=== PATIENT | male | born 1965 | race Caucasian/White ===

== ENCOUNTER → 2023-09-10 12:28 | Outpatient (REF) | payer BC, SELFPAY | LOC: DHCBS MAIN 12:28 | PROVIDERS: ATTENDING PHYSICIAN Internal Medicine Cardiovascular Disease; FAMILY PHYSICIAN Family Medicine | DX: I35.1 Nonrheumatic aortic (valve) insufficiency (principal) | CPT/HCPCS: 93306 ==

== ENCOUNTER → 2024-09-14 09:18 | Outpatient (REF) | payer BC, SELFPAY | LOC: HWRAD 09:18 | PROVIDERS: ATTENDING PHYSICIAN Physician Assistant; FAMILY PHYSICIAN Family Medicine | DX: I71.20 Thoracic aortic aneurysm, without rupture, unspecified (principal) | CPT/HCPCS: 71250 ==

== ENCOUNTER → 2024-09-21 10:04 | Outpatient (REF) | payer BC, SELFPAY | LOC: HWRCS 10:04 | PROVIDERS: ATTENDING PHYSICIAN Internal Medicine Cardiovascular Disease | DX: I35.1 Nonrheumatic aortic (valve) insufficiency (principal) | CPT/HCPCS: 93306 ==

== ENCOUNTER 2024-10-05 06:18 | Day surgery (SDC) | payer BC, SELFPAY ==
[2024-10-05] VITALS (9 sets, daily range): BP systolic 139–175; BP diastolic 70–85; BMI 25.4
[2024-10-05] MEDS: LOW STRENGTH ASPIRIN 324 MG PO (07:14)
[2024-10-05] MEDS: NSS 234 ML IV (07:19)
--- NOTE | 2024-10-05 08:48 | ITS.CL.CATH ---
Chief Informatics Officer - Catheterization
Cardiac Catheterization
Procedure Report:
LEFT HEART CATHETERIZATION
Date of Procedure: October 05, 2024
Referring: Dr. Jesse Whitlock, Dr. Nazario Arce
PROCEDURES:
Coronary angiography
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 He has a history of
rectal carcinoma diagnosed in 2011 treated with resection, ileostomy, and chemotherapy. He is followed by Dr. Ford. He has a known bicuspid aortic valve and aortic root dilation. The most recent CT angiogram of the thoracic aorta was notable for
progressive dilation of the fusiform aneurysm now measuring 5.8 cm. He was seen by Dr. Arce and scheduled for surgical repair of his aortic aneurysm and aortic valve replacement/resuspension. He is now referred for coronary angiography in
anticipation of surgical intervention.
ACCESS: Right radial artery, 6 Martiniquais sheath
HEMODYNAMICS : (mmHg)
AO (s/d) : 134/69, 90
CORONARY FINDINGS
DOMINANCE: Right
LEFT MAIN: Normal
LEFT ANTERIOR DESCENDING: The LAD arises normally from the left main and runs in the anterior interventricular groove. There is a sizable diagonal branch had a prizes from the proximal one third of the LAD. The LAD and diagonal branch appear
widely patent
CIRCUMFLEX: The circumflex/ramus is large and bifurcates distally and appears widely patent. The circumflex proper supplies a very small terminal obtuse marginal branch
RIGHT CORONARY ARTERY: The right coronary artery is a dominant vessel. The right coronary was nonselectively cannulated for angiography with an AL 2 diagnostic catheter. The right coronary artery appears large and dominant. No focal high-grade
stenosis is appreciated. There is mild RCA calcification noted
VENTRICULOGRAPHY: Not done
RADIATION SUMMARY: Fluoro Time (min): 6.9, Dose (mGy): 243, DAP (Gy.cm2) : 19.2
Closure Device: TR band
CONCLUSIONS
1. Nonobstructive coronary disease
RECOMMENDATIONS
1. Angiograms will be reviewed by Dr. Arce
Copy to: Dr. Jesse Whitlock, Dr. Nazario Arce
[2024-10-05] MEDS: NSS 1000 IV (08:58)
== END 2024-10-05 11:29 | disposition home or self-care (01) ==
LOC: CATH 06:18
PROVIDERS: ATTENDING PHYSICIAN Internal Medicine Interventional Cardiology; FAMILY PHYSICIAN Nurse Practitioner Family; OTHER PHYSICIAN Internal Medicine Cardiovascular Disease
DX: Q25.43 Congenital aneurysm of aorta (principal); I35.1 Nonrheumatic aortic (valve) insufficiency; I25.10 Atherosclerotic heart disease of native coronary artery without angina pectoris; Q23.81 Bicuspid aortic valve; Z95.2 Presence of prosthetic heart valve; Z94.0 Kidney transplant status; Z85.048 Personal history of other malignant neoplasm of rectum, rectosigmoid junction, and anus; Z87.891 Personal history of nicotine dependence
CPT/HCPCS: 93005; 93458; C1894; Q9967

== ENCOUNTER 2024-10-09 08:02 | Outpatient (RCR) | payer BC, SELFPAY ==
[2024-10-09] MEDS: NSS 500 IV (08:27)
[2024-10-09 08:35] VITALS: BP 133/71
[2024-10-09 10:36] VITALS: BP 144/68
== END 2024-11-02 23:59 | disposition home or self-care (01) ==
LOC: OID 08:02
PROVIDERS: ATTENDING PHYSICIAN Thoracic Surgery (Cardiothoracic Vascular Surgery); FAMILY PHYSICIAN Nurse Practitioner Family
DX: Q25.43 Congenital aneurysm of aorta (principal); Q23.81 Bicuspid aortic valve; I35.1 Nonrheumatic aortic (valve) insufficiency
CPT/HCPCS: 96360; 96361

== ENCOUNTER → 2024-10-09 09:06 | Outpatient (REF) | payer BC, SELFPAY | LOC: RAD 09:06 | PROVIDERS: ATTENDING PHYSICIAN Thoracic Surgery (Cardiothoracic Vascular Surgery) | DX: Q25.43 Congenital aneurysm of aorta (principal) | CPT/HCPCS: 71275; Q9967 ==

== ENCOUNTER 2024-10-13 05:12 | Inpatient (IN) | payer BC, SELFPAY ==
[2024-10-02 08:22] VITALS: BMI 27.1
[2024-10-02 09:14] LABS: INR 0.94; PT 12.9 Sec (11.4-14.6)
[2024-10-02 09:16] LABS: % Basophils 0.8 % (0-2); % Eosinophils 1.5 % (0-6); % Immature Granulocytes 0.4 % (0-0.5); % Lymphocytes 16.3 % (20.5-51.1); % Monocytes 6.9 % (1.7-9.3); % Neutrophils 74.1 % (42.2-75.2); APTT 27.7 Sec (23.4-35.0); Absolute Eosinophils 0.1 10^3/uL (0-0.7); Absolute Lymphocytes 0.9 10^3/uL (1.2-3.4); Absolute Monocytes 0.4 10^3/uL (0.1-0.6); Absolute Neutrophils 3.9 10^3/uL (1.4-6.5); Hematocrit 35.9 % (39.0-52.0); Mean Corp Hgb Conc. 33.4 g/dL (33.0-37.0); Mean Corpuscular Hgb 28.8 pg (27.0-31.0); Mean Corpuscular Volume 86.1 fL (80.0-94.0); Mean Platelet Volume 10.1 fL (7.4-10.4); Nucleated Red Blood Cells % 0 % (-); Platelet Count 250 10^3/uL (130-400); Red Blood Cell Count 4.17 10^6/uL (4.70-6.10); Red Cell Dist. Width 12.6 % (11.5-14.5); White Blood Cell Count 5.2 10^3/uL (4.8-10.8)
[2024-10-02 09:36] LABS: Urine Albumin 1+ (Neg - Trace); Urine Bilirubin Negative (Negative); Urine Character Clear (Clear); Urine Color Yellow; Urine Glucose Negative (Negative); Urine Ketone Negative (Negative); Urine Leukocyte Negative (Negative); Urine Nitrite Negative (Negative); Urine Occult Blood Negative (Negative); Urine Specific Gravity 1.015 (<1.030); Urine Urobilinogen Negative (Neg - 1+)
[2024-10-02 09:53] LABS: ALT (SGPT) 24 U/L (0-50); AST (SGOT) 19 U/L (17-59); Albumin 3.8 g/dl (3.5-5.0); Alkaline Phosphatase 84 U/L (38-126); Blood Urea Nitrogen 29 mg/dl (9-20); Calcium 9.6 mg/dl (8.4-10.2); Carbon Dioxide 21 mmol/L (22-30); Chloride 108 mmol/L (98-107); Direct Bilirubin 0.1 mg/dl (0.0-0.4); Estimated Creatinine Clearance 54 ml/min; Glucose 107 mg/dl (70-99); Potassium 4.9 mmol/L (3.5-5.1); Sodium 135 mmol/L (135-145); Total Bilirubin 0.4 mg/dl (0.2-1.3); Total Protein 6.6 g/dl (6.3-8.2); eGFR 58.62
--- NOTE | 2024-10-02 10:20 | CM ---
Met with Mr. Henry in [facility] He states prior to admission he resides with his spouse in a two story home with one step to enter. He states he has a full flight of steps to get to bedroom/full bathroom. He states he has a powder room on the first
floor. He states prior to admission he was independent with ambulation and adls. He states he does not have any DME in the home. He states he has a prescription plan and uses [facility] except for his antirejection medications which he gets by
mail order from [facility]. He states his spouse works outside the home but his two sons are coming in for a week or so to stay with him. Also his parents resides nearby and will be available to assist in his care if needed. The
discharge plan is to return home with his spouse and his two sons staying with him and home visit by the Transitional Care Nurse when medically stable.
We reviewed pre-op and post-op routines. We reviewed the shower instructions. He has the soap, written instructions and the Cardiothoracic Thoracic Surgery Educational Booklet. We also reviewed restrictions including sternal precautions and
driving restrictions. We also discussed a home visit by the Transitional Care Nurse. He is agreeable to a home visit. The plan is for CABG on Friday, October 13.
[2024-10-02 10:21] LABS: Urine Red Blood Cell 0-2 /HPF (0-2); Urine White Cell 0-2 /HPF (0-5)
[2024-10-02 10:42] LABS: Glycohemoglobin (HgbA1c) 5.3 % (4.0-5.6)
[2024-10-13] VITALS (12 sets, daily range): BP systolic 92–158; BP diastolic 63–84; BMI 24.9
[2024-10-13] MEDS: LOPRESSOR 25 MG PO (05:59)
[2024-10-13] MEDS: BACTROBAN 2% OINTMENT 1 APPLIC NASAL ×2 (05:59→20:24)
[2024-10-13] MEDS: MAGNESIUM OXIDE 500 MG PO (06:00)
[2024-10-13] MEDS: PROTONIX 40 MG PO (06:00)
--- NOTE | 2024-10-13 06:17 | W.CVOR.SURPR ---
CVOR Surgeon Immed Pre Op
-
I have examined this patient prior to performance of the scheduled procedure.
The patient's condition is unchanged from the time of the dictated/written History and
Physical and the patient is able to undergo the scheduled procedure.
BioBentall + JOHN Clip, high risk given use of dual immunosuppressors
--- NOTE | 2024-10-13 07:21 | PTCARENOTE ---
Pt admitted at 0510 to CVICU. Pt clipped and prepped per CVOR protocol. CHG bath done. VS done. All admission computer work completed. Pre op meds given. (Metoprolol adhmv-qyn-vy-talked with PA). at bedside. Dr. Arce in to talk with pt and
. Pt escorted to CVOR with 2 RNs at 0630.
[2024-10-13 07:43] LABS: ACT+ - POC 93 Seconds (82-134)
[2024-10-13 08:19] LABS: Urine Albumin Negative (Neg - Trace); Urine Bilirubin Negative (Negative); Urine Character Clear (Clear); Urine Color Yellow; Urine Glucose Negative (Negative); Urine Ketone Negative (Negative); Urine Leukocyte Negative (Negative); Urine Nitrite Negative (Negative); Urine Occult Blood 3+ (Negative); Urine Urobilinogen Negative (Neg - 1+); Urine pH 6.5 (5.0-9.0)
[2024-10-13 08:37] LABS: ACT+ - POC 630 Seconds (82-134)
[2024-10-13 08:48] LABS: Urine Red Blood Cell 0-2 /HPF (0-2); Urine White Cell 0-2 /HPF (0-5)
[2024-10-13 09:13] LABS: ACT+ - POC 641 Seconds (82-134)
[2024-10-13 09:38] LABS: ACT+ - POC 562 Seconds (82-134)
[2024-10-13 09:50] LABS: B.E. - POC -2.4 mmol/L; Glucose - POC 99 mg/dl (70-99); HCO3 - POC 22 mmol/L (21-28); Hematocrit - POC 31 % PCV (42-52); Hemodilution- POC No; Hemoglobin Calculated - POC 10.7; Ionized Calcium - POC 1.23 mmol/L (1.15-1.33); Lactate - POC < 0.30 mmol/L (0.36-0.75); O2 Saturation %Calculated-POC 99.9 % (94-98); PCO2 - POC 38 mmHg (35-48); PO2 - POC 281 mmHg (83-108); Potassium - POC 4.9 mmol/L (3.5-5.1); Sodium - POC 139 mmol/L (136-145); Specimen Type - POC Arterial; pH - POC 7.38 (7.35-7.45)
[2024-10-13 09:50] LABS: Glucose - POC 125 mg/dl (70-99); HCO3 - POC 24 mmol/L (21-28); Hematocrit - POC 29 % PCV (42-52); Hemodilution- POC Yes; Hemoglobin Calculated - POC 9.8; Lactate - POC < 0.30 mmol/L (0.36-0.75); O2 Saturation %Calculated-POC 99.9 % (94-98); PCO2 - POC 39 mmHg (35-48); PO2 - POC 329 mmHg (83-108); Potassium - POC 6.6 mmol/L (3.5-5.1); Sodium - POC 133 mmol/L (136-145); Specimen Type - POC Arterial
[2024-10-13 09:59] LABS: B.E. - POC 0.3 mmol/L; Glucose - POC 154 mg/dl (70-99); HCO3 - POC 26 mmol/L (21-28); Hematocrit - POC 29 % PCV (42-52); Hemodilution- POC Yes; Hemoglobin Calculated - POC 9.9; Ionized Calcium - POC 1.05 mmol/L (1.15-1.33); O2 Saturation %Calculated-POC 99.8 % (94-98); PCO2 - POC 43 mmHg (35-48); PO2 - POC 242 mmHg (83-108); Sodium - POC 133 mmol/L (136-145); Specimen Type - POC Arterial; pH - POC 7.38 (7.35-7.45)
[2024-10-13 10:09] LABS: ACT+ - POC 525 Seconds (82-134)
[2024-10-13 10:30] LABS: B.E. - POC -0.9 mmol/L; Glucose - POC 145 mg/dl (70-99); HCO3 - POC 25 mmol/L (21-28); Hematocrit - POC 29 % PCV (42-52); Hemodilution- POC Yes; Hemoglobin Calculated - POC 9.9; Ionized Calcium - POC 0.98 mmol/L (1.15-1.33); Lactate - POC 0.55 mmol/L (0.36-0.75); O2 Saturation %Calculated-POC 99.8 % (94-98); PCO2 - POC 44 mmHg (35-48); PO2 - POC 259 mmHg (83-108); Potassium - POC 6.4 mmol/L (3.5-5.1); Sodium - POC 138 mmol/L (136-145); Specimen Type - POC Arterial; pH - POC 7.36 (7.35-7.45)
[2024-10-13 10:40] LABS: ACT+ - POC 486 Seconds (82-134)
[2024-10-13 10:50] LABS: Glucose - POC 252 mg/dl (70-99); HCO3 - POC 26 mmol/L (21-28); Hematocrit - POC 29 % PCV (42-52); Hemodilution- POC Yes; Hemoglobin Calculated - POC 9.8; Ionized Calcium - POC 0.99 mmol/L (1.15-1.33); Lactate - POC 1.19 mmol/L (0.36-0.75); O2 Saturation %Calculated-POC 98.2 % (94-98); PCO2 - POC 45 mmHg (35-48); PO2 - POC 114 mmHg (83-108); Sodium - POC 139 mmol/L (136-145); Specimen Type - POC Arterial; pH - POC 7.36 (7.35-7.45)
[2024-10-13 11:07] LABS: ACT+ - POC 96 Seconds (82-134)
--- NOTE | 2024-10-13 11:33 | W.PN.CT.SURG ---
CT Surgery Operative Note
-
CARDIAC SURGERY OPERATIVE REPORT
Preoperative Diagnosis: Aortic root aneurysm with bicuspid aortic valve with moderately severe insufficiency with interval change
Postoperative Diagnosis: Same, chronic type a dissection of the aortic root
Procedure(s) Performed:
1. Standard sternotomy with aortic and right atrial cannulation
2. Ascending aorta and aortic root replacement - Biological Bentall [29 mm valved conduit]
3. Reimplantation of coronary buttons [left and right]
4. Left atrial appendage exclusion [35 mm device]
5. Placement of temporary atrial ventricular pacing wires
6. Transesophageal echocardiography
Date of Surgery: 10/13/2024
Comorbidities:
1. Aortic root and SN aortic aneurysm with interval growth
2. Chronic type A aortic root dissection
3. Hypertension
4. Chronically immunosuppressed
5. Status post renal transplantation for IgA nephropathy
6. Baseline CKD with creatinine of 1.4
7. Colorectal cancer status post resection, remission
8. Moderately severe aortic valve insufficiency with bicuspid valve morphology [left right fusion]
9. History of radiation therapy for colon cancer
10. Recurrent skin cancer
Attending Surgeon: Nazario Arce MD, MS
Assistants: Jessica Monroy PA-C (present and necessary to assistant attorney general, retraction, suction, exposure, suture management, and wound closure under my direction) & Royal Philip, PGY-1 (Cardiac Surgery Dry Cleaner Hand - wound closure under my direction)
Anesthesiology: Saul Lawton MD and Umu Hatch CRNA
Scrub and Circulating RNs: Irene Vasquez, RN, Anisa Kim RN
Notcher: Martha Go CCP
Anesthesia: GETA
EBL: per perfusion records
Products: None
CPB Time: 129 minutes
Aortic Cross Clamp Time: 102 minutes
Indication(s) for Procedures: This is a 59-year-old male with a history of living related kidney transplantation in 2016 for IgA nephropathy now is on chronic immunosuppressive medications with a baseline CKD with creatinine of 1.4. He has a known
ascending aortic root aneurysm that has degenerated and increased in size. He also has moderately severe aortic valve insufficiency with known bicuspid valve morphology. Given the interval increase in size and bicuspid morphology, he was offered
high risk surgical resection. Given the calcium on his CT scan located on the raphae of the left right coronary cusp, there was a high likelihood of replacing his valve at time of surgery as well as opposed to sparing it.
Aortic Valve Description: Heavily calcified raphae between the left and right coronary leaflets, left and right coronary ostium within normal anatomic positions with a slightly higher, displaced by the root aneurysm. The noncoronary cusp was
severely abnormal in appearance and ballooned out with evidence of a chronic dissection with disruption of the intima. The ascending aorta and aneurysm was covered in scar tissue as it was likely rubbing against pericardium for quite some time.
The noncoronary sinus was extremely thin.
Findings: His left ventricular ejection fraction preoperatively was 60% with no regional wall motion abnormalities. His LV was mildly dilated. Following surgery his EF remained the same at 55 to 60% with no new regional wall motion abnormalities.
His LV did appear less dilated. The ascending aortic aneurysm and root aneurysm was very abnormal in appearance with evidence of soldiers patches due to chronic friction. Once the root was opened up, the left and right coronary cusp were
visualized and extremely calcified at the raphae. This met the valve is likely not salvageable. In addition tissue from the STJ leading into the noncoronary sinus had evidence of disruption of the intima with the wall here being very thinned out
and ballooning. His root was replaced with a 29 mm valved conduit using a total of 16 pledgeted 2 Ethibond sutures placed from LVOT through annulus through sewing cuff and secured into place with core knots after parachuted the valve down. Both
left and right coronary ostia were reimplanted in the cell there in order hemispheres of the graft, respectively. There is excellent flow emanating from the left main with retrograde cardioplegia. After coming off cardiopulmonary bypass, there was
no regional wall motion abnormalities and normal RV function. His left atrial appendage was verified to be free of any thrombus or debris preoperatively and clipped postoperatively given the extent of surgery and his risk for developing atrial
fibrillation and stroke. The ascending aorta was then resected to a point in which neck down to normal diameter and the graft was beveled accordingly. The distal anastomosis was performed using the valved conduit straight tube portion. He did not
require any inotropic support, his cardiac index was greater than 2, he regained sinus rhythm after a very short period of AV pacing, he had 1 fibrillatory event likely secondary to air entrainment which resolved after defibrillation and driving the
blood pressure up. He did not require any blood products.
Specimen(s): Ascending aorta, sinuses, aortic valve.
Prosthesis:
1. 29 mm Song Konect Resilia Inspiris Valved conduit, serial #[id number]
2. 35 mm clip, serial #[id number]
3. Bovine pericardial patch use as a gasket around suture lines, serial number X [id number]
4. Absorbable sealant, serial number [id number]
Description of Procedure: The patient was taken to the operating room. Their identity and procedure to be performed were verified and they were positioned supine on the operating table. Induction via general anesthesia with endotracheal intubation
was performed and central venous access and arterial monitoring were inserted. A preoperative transesophageal echocardiogram was performed to assess cardiac function and valvular function. The patient was then prepped and draped from chin to feet in
a sterile fashion. A preoperative time-out was performed with all members of the team present. A midline chest incision was performed along with median sternotomy. The innominate vein was isolated. Full heparinization was given (a total of 42,000
units). We created a pericardial well. The aortic cannulation site was chosen where it was soft, pliable, and free of calcium. Cannulation was performed with an arterial cannula in the proximal arch of the aorta and a triple-stage venous cannula
through the right atrial appendage. The arterial cannula line had an appropriate bounce and correlating pressures with test dosing. The pulmonary artery was away from the aorta to facilitate a clamp site and aortotomy. Next, a retrograde
coronary sinus catheter was placed for the RA with KENNY and manual guidance. The ACT was confirmed to be over 400 and retrograde autologous priming was performed before commencing cardiopulmonary bypass. A left ventricular vent was placed at the
right superior pulmonary vein and secured. The aortic cross-clamp was placed after decreasing the flow on the bypass and mean arterial pressure. A total of 1.2L initial dose of Del-Nido cardioplegia solution was given (600 via retrograde and then
600 direct ostial) and planned for re-dosing every 60 minutes as necessary. While retrograde is being given, the ascending aortic was transected and the stay sutures were placed in order to visualize the coronary ostia. Cardioplegia was visualized
emanating from the left main. There was electro-mechanical arrest of the heart at 500 cc of cardioplegia. The left ventricle was observed for distention on echocardiogram and manual palpation. Cold slush was placed into a sponge and topically on
the RV while we systemically cooled to 32 degrees centigrade. Once the heart was fully arrested we rotated medially and applied a 35mm clip to his left atrial appendage flush to the base.
The location of both left and right coronary vessels were visualized in the root. The aorta was fully transected above the STJ. Stay sutures were placed at each commissure to facilitate exposure. The leaflets were excised and sent for pathological
assessment. Stay sutures were placed at Next, the aortic sinuses were resected and the left main and right coronary buttons were mobilized. Excess sinus tissue was then resected leaving approximately 1 cm cuff along the annulus. 4-0 pledgeted
sutures were used to retract the buttons. A total of 16 pledgeted 2-0 ethibond annular sutures were placed [id number] (inverted) circumferentially. These were brought through the sewing cuff of the valved conduit which as then parachuted into
place. A Cor-Knot device was used to secure the annular sutures. An eye cautery was used to first create a small opening to perform left main coronary button anastomosis. The button was then trimmed accordingly and using 5-0 Prolene with a bovine
pericardial gasket, the button was reimplanted toward the Jeanmarie-left sinus. Volume was then used to fill the heart to estimate the location for the right coronary button anastomosis. In a similar fashion an eye cautery was used to create a small
opening in the jeanmarie-right sinus and anastomosis was created with 5-0 Prolene running fashion using bovine pericardium as a gasket. The ascending aorta was then resected and the valved conduit was trimmed accordingly. The distal anastomosis was
performed with a running 4-0 Prolene in a single layer using bovine pericardium as a gasket. Several reinforcement sutures were placed using pledgeted 4-0 Prolene.
De-airing maneuvers were performed and temporary bipolar ventricular pacing wires were placed on the base of the right ventricle and temporary atrial pacing wires at the SVC/Atrial junction. The patient was placed in a Trendelenburg position and
flows on bypass were lowered. The aortic cross clamp was removed and flows were slowly brought back up. The suture lines appeared hemostatic. Transesophageal echocardiography revealed no AI and appropriate prosthetic function. Once de-airing was
satisfactory, the left ventricular vent was removed. After verifying acceptable parameters, we initiated weaning from cardiopulmonary bypass. Once we were off cardiopulmonary bypass, the venous cannula was clamped and removed. A test dose of
protamine was administered and the patient was monitored for any adverse reaction before resuming protamine. Once half of the protamine dose was delivered, pump suckers were turned off and the systolic blood pressure was lowered for aortic
decannulation. The aortic cannula was removed and pursestrings were tied down. All cannulation sites were oversewn with a 4-0 prolene. The suture lines were inspected and hemostasis was confirmed. Mediastinal hemostasis was obtained. Two 24Fr Rufino
drains were placed within the pericardium. The sternum was approximated with 4 #7 single and 3 #8 double stainless steel wires. Fascia was approximated with #1 vicryl suture. The subcutaneous, dermis and epidermis were closed in layers in a running
fashion. The skin wound was cleansed and dressed.
All instrument, sponge, and needle counts were confirmed to be correct x 2 at the end of the operation. The patient was transferred to the cardiac intensive care unit in critical but stable condition.
I, Dr. Nazario Arce, was present, scrubbed for, and performed all critical elements of this procedure.
Nazario Arce MD, MS
Cardiothoracic Surgeon
[facility]
This dictation was created using the M-Files dictation system. Please excuse any grammatical, typographical, or 'sound alike' errors
--- NOTE | 2024-10-13 11:37 | CM ---
Chart reviewed. Patient is in the OR today. Patient is independent of ADLS, lives with his in a 2 STH, 1 JIE, 0 DME. Plan is for the patient to return home with CT Transitional RN. CM to follow
[2024-10-13] MEDS: DEXTROSE 50% SYRINGE 12.5 GRAMS IV ×4 (12:00→13:10)
[2024-10-13 12:05] LABS: Glucose - Point of Care 13 mg/dl (70-99)
[2024-10-13 12:05] LABS: Glucose - Point of Care 14 mg/dl (70-99)
--- NOTE | 2024-10-13 12:05 | CON.INTV ---
Consultation
Consultation Request
Date/Time Consultation Requested: 10/13/2024 - 1133
Date/Time Consultation Performed: 10/13/2024 - 1154
Requesting Provider: Messi Butler PA-C
Performing Provider: Dr. Huntley
Reason for Consultation: Ascending aorta + aortic root replacement + JOHN-exclusion
Medical History
-
Chief Complaint: Elective ascending aorta + aortic root replacement
History of Present Illness:
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
aneurysm, bicuspid aortic valve, nonrheumatic aortic valve insufficiency, incisional hernia, history of shingles on right buttocks, erectile dysfunction, recurrent skin cancer, and anemia who presents with elective ascending aorta + aortic root
replacement. Patient known to the cardiothoracic surgery service, with last visit on 09/22/[address] Arce. He has had serial echocardiograms as well as CAT scans performed from 2020 until now. Most recent CTA of the chest on 10/09/2024 shows a
dilated aortic root measuring 4.8 cm with the sinuses of Valsalva measuring 4.8 x 4.5 x 4.8 cm. The ascending aorta has a short axis diameter of 4.1 cm. Most recent echo from 09/21/2024 showed bicuspid aortic valve with fusion of the right and left
coronary cusps and adequate leaflet excursion with moderate to severe aortic insufficiency with a severely dilated aortic root, measuring 5.1 cm at the sinuses of Valsalva, 5 cm at the sinotubular junction, and 5.8 cm ascending aorta. Since prior
echo in September 2023, ascending aorta has increased from 4.9 cm to 5.8 cm. Patient discussed surgical intervention for his aortic root dilation and he has agreed to this procedure. Patient subsequently had a left heart catheterization on 10/05/2024
as part of preoperative workup, showing nonobstructive CAD. Today, he underwent ascending aorta and aortic root replacement with a biological Bentall 29 mm valved conduit, with reimplantation of left and right coronary buttons, and left atrial
appendage exclusion with a 35mm device. Patient tolerated the procedure well and was transferred to the CVICU with mediastinal chest tubes x 2. [employer] Professor service is now consulted for additional management/recommendations.
When I saw the patient, he was resting in bed, sedated on Precedex at 0.5mcg/kg/hr, intubated on SIMV at 16/500/40%/5, with PSV at 5, with PIP: 18 cmH2O, VTe 516 cc and breathing at 16 breaths/min. Heart rate 71, BP via A-line (left radial):
115/66, SpO2 96%, CO/CI: 6.34/3.3, respectively, PAP: 29/18. Currently on insulin drip at 0.7 units/hr and Cardene drip at 7.5 mg/hr.
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
dialysis, dilated ascending aorta, bicuspid aortic valve, moderate to severe aortic insufficiency, history of IgA nephropathy, incisional hernia, history of shingles on right buttocks (2016), ED, recurrent skin cancer, anemia, chronic loose stools
PSHx: Ileostomy with reversal (May 2013), vasectomy, living related kidney transplant (03/2016), supraumbilical incisional hernia repair, transplant kidney biopsy (03/2018), left nasal Mohs procedure, colonoscopy
Past Medical History
Past Medical History: Other (Above as per HPI)
Past Surgical History: Other (Above as per HPI)
Social History
Tobacco: Former Smoker (Quit 2011)
Alcohol: Occasional (Social)
Drug: None
Personal:
Living: With Family (Lives with )
Employment: Employed ([employer])
Family History
Family History: CAD (Maternal grandfather), Cancer (Father: Colon cancer; Mother: Melanoma; Maternal grandmother: History of colon cancer), Diabetes (Father), Hypertension (Father) and Other (Paternal grandmother: History of CVA)
Allergies / Home Medications
Allergies
Allergy/AdvReac Type Severity Reaction Status Date / Time
amoxicillin [From Augmentin] Allergy DIARRHEA Verified 10/13/24 05:43
clavulanic acid Allergy DIARRHEA Verified 10/13/24 05:43
[From Augmentin]
Sulfa (Sulfonamide Allergy Rash Verified 10/13/24 05:43
Antibiotics)
sulfamethoxazole Allergy Rash Verified 10/13/24 05:43
[From Bactrim]
trimethoprim [From Bactrim] Allergy Rash Verified 10/13/24 05:43
Home Medications
�Medication �Instructions �Recorded �Confirmed �Last Taken �Type
loperamide 2 mg capsule 6 mg PO DAILY 05/04/15 10/13/24 10/12/24 20:00 History
lisinopril 10 mg tablet 10 mg PO DAILY 02/28/22 10/13/24 10/11/24 08:00 History
tacrolimus 1 mg tablet,extended 2 mg PO DAILY 02/28/22 10/13/24 10/12/24 08:00 History
release 24 hr (Envarsus XR)
amlodipine 5 mg tablet 5 mg PO DAILY 09/28/24 10/13/24 10/11/24 20:00 History
carvedilol 25 mg tablet 25 mg PO BID 09/28/24 10/13/24 10/12/24 20:00 History
dicyclomine 20 mg tablet 20 mg PO TID 09/28/24 10/13/24 10/12/24 20:00 History
sirolimus 1 mg tablet 1.5 mg PO DAILY 09/28/24 10/13/24 10/06/24 08:00 History
mycophenolate mofetil 500 mg tablet 500 mg PO BID 10/05/24 10/13/24 10/12/24 20:00 History
cyanocobalamin (vitamin B-12) mcg PO DAILY 10/13/24 10/05/24 08:00 History
1,000 mcg tablet (Vitamin B-12)
Review of Systems
-
Unable to Obtain full review of systems at this time due to: Patient Intubation
Vitals / Labs / Diagnostic Testing
Vital Signs
Temp Pulse Resp BP Pulse Ox
97.1 F 73 16 92/63 95
10/13/24 13:00 10/13/24 13:05 10/13/24 13:05 10/13/24 13:04 10/13/24 13:05
Lab Data
10/13/24 11:52
10/13/24 11:52
Laboratory Results
10/13/24
11:52
PT 17.4 H
INR 1.40
APTT 32.0
pH 7.33 L
pCO2 43
pO2 129 H
HCO3 22.7
O2 Delivery Level Not Reportable
Diagnostic Testing:
Physical Exam
-
HEENT: Normocephalic, Anicteric and Other (ETT in place)
Cardiovascular: S1/S2 and Peripheral Edema (negative)
Respiratory: Wheeze (negative), Rales (negative), Rhonchi (negative), Non-Labored Respirations, Other (Mechanical breath sounds heard bilaterally) and Other (Chest tubes: mediastinal x 2)
GI: Soft, Non Distended, Non Tender and Normal Bowel Sounds
Neurology: Tremors (negative) and Other (Sedated)
Skin: Warm and Dry
General: Respiratory Distress (negative), Comfortable, Fever (negative) and Chills (negative)
Assessment
-
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
aortic root aneurysm, bicuspid aortic valve, nonrheumatic aortic valve insufficiency, incisional hernia, history of shingles on right buttocks, erectile dysfunction, recurrent skin cancer, and anemia who presents with elective ascending aorta +
aortic root replacement. Patient known to the cardiothoracic surgery service, with last visit on 09/22/[address] Arce. He has had serial echocardiograms as well as CAT scans performed from 2020 until now. Most recent CTA of the chest on
10/09/2024 shows a dilated aortic root measuring 4.8 cm with the sinuses of Valsalva measuring 4.8 x 4.5 x 4.8 cm. The ascending aorta has a short axis diameter of 4.1 cm. Most recent echo from 09/21/2024 showed bicuspid aortic valve with fusion of
the right and left coronary cusps and adequate leaflet excursion with moderate to severe aortic insufficiency with a severely dilated aortic root, measuring 5.1 cm at the sinuses of Valsalva, 5 cm at the sinotubular junction, and 5.8 cm ascending
aorta. Since prior echo in September 2023, ascending aorta has increased from 4.9 cm to 5.8 cm. Patient discussed surgical intervention for his aortic root dilation and he has agreed to this procedure. Patient subsequently had a left heart
catheterization on 10/05/2024 as part of preoperative workup, showing nonobstructive CAD. Today, he underwent ascending aorta and aortic root replacement with a biological Bentall 29 mm valved conduit, with reimplantation of left and right coronary
buttons, and left atrial appendage exclusion with a 35mm device. Patient tolerated the procedure well and was transferred to the CVICU with mediastinal chest tubes x 2. [employer] Professor service is now consulted for additional management/recommendations.
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
peritoneal dialysis, dilated ascending aorta, bicuspid aortic valve, moderate to severe aortic insufficiency, history of IgA nephropathy, incisional hernia, history of shingles on right buttocks (2016), ED, recurrent skin cancer, anemia, chronic
loose stools
Impression:
#Aortic root aneurysm with bicuspid aortic valve with moderate�severe aortic valve insufficiency with chronic type aortic root dissection s/p ascending aorta + aortic root replacement with biological bentall 29 mm valved conduit, reimplantation of
left and right coronary buttons (POD #0)
#Acute anemia due to above
#CKD
#Hypoglycemia
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
#History of colorectal cancer (diagnosed in March 2012) s/p ileostomy with reversal (2012) + s/p chemotherapy + XRT now in remission
#Erectile dysfunction
#Former tobacco smoker (quit 2011)
Plan:
Ventilator settings reviewed
FiO2 will be weaned to maintain SpO2 >90-94%
Minute ventilation will be adjusted
Arterial blood gases will be monitored
Spontaneous breathing trial will be attempted with hopeful extubation after anesthesia/sedation wear off
prn nebulized bronchodilators - not currently bronchospastic
Pulmonary artery catheter parameters will be followed
Pressors/antihypertensive/inotropes/diuretics will be provided as needed
Maintain MAP>65
Replete electrolytes with K>4, Mg>2
Monitor chest tube output (mediastinal chest tubes x 2)
Monitor hemoglobin
Monitor platelet count and coags
Transfuse blood products as needed to maintain Hb>7g/dL, plt>50k (given post-operative status)
CT surgery managing chest tubes
Monitor blood sugar to maintain euglycemia with goal BG 140-180
Insulin drip per protocol
Aspiration precautions
VAP prevention protocol
DVT prophylaxis
Early nutrition
Early mobilization
Critical care statement: A total of 46 minutes of critical care time was provided for this patient today. This includes management of ventilator, spontaneous breathing trial, arterial blood gases, pressors, of unstable vital signs, evaluation of the
patient at bedside, reviewing the patient's pertinent medical records including radiographs, microbiology, laboratory evaluations, and discussion with primary team and critical care nursing.
[2024-10-13 12:12] LABS: Hematocrit 29.9 % (39.0-52.0); Hemoglobin 10.2 g/dL (13.0-18.0); Platelet Count 184 10^3/uL (130-400)
--- NOTE | 2024-10-13 12:15 | W.PN.CARDCBS ---
Addendum entered and electronically signed by Garcia Tilley MD 10/13/24 16:55:
Attending addendum: Patient seen and examined. Catheterization images reviewed. s/p AVR root replacement w history of bicuspid AV. Prior living related renal transplant. He is awake and conversant. His only complaint relates to right eye
discomfort that improved somewhat with artificial tears. He is hemodynamically stable and off pressors. Will follow
Original Note:
Today's Communication / Plan
-
continue post op care
follow BS
Impression / Plan
-
Primary Licensed Mortgage Loan Officer: Dr. Whitlock
Assessment:
Aortic root and SN aortic aneurysm with interval growth and AI with bicuspid morphology s/p ascending aorta and aortic root replacement, JOHN clip 10/13/24
Chronic type A aortic root dissection
HTN
Chronically immunosuppressed state
Living related donor renal transplantation for IgA nephropathy 2015
CKD with baseline Cr 1.4
Colorectal cancer status post resection and radiation/chemotherapy, in remission
Recurrent skin cancer
Post op hypoglycemia
ECHO 09/21/24: EF 56%, mild concentric LVH, MAC, bicuspid aortic valve with fusion of right and left coronary cusps, moderate to severe AI, severely dilated aortic root measuring 5.1 cm at sinus of Valsalva, 5.0 cm at sinotubular junction, 5.8 cm
ascending aorta
Plan:
-s/p ascending aorta and aortic root replacement, JOHN clip 10/13/24
-remains intubated, sedated.
-BS upon arrival to floor was 14, repeat 13. insulin turned off. dextrose ordered. follow closely
-off pressors. attempting to keep SBP<110, may start cardene
-EKG SR with QRS widening, follow
-continue post op care
-prior to admission was on norvasc 5mg daily, coreg 25mg BID, lisinopril 10mg daily. resume post op as able
-d/w nursing
Progress Note - Licensed Mortgage Loan Officer
Subjective
Date of Service: October 13, 2024
intubated, sedated
Objective
Labs:
10/13/24 11:52
Labs
Hgb 10.2 g/dL (13.0-18.0) L 10/13/24 11:52
Hct 29.9 % (39.0-52.0) L 10/13/24 11:52
Plt Count 184 10^3/uL (130-400) 10/13/24 11:52
PT 12.9 Sec (11.4-14.6) 10/02/24 08:30
INR 0.94 10/02/24 08:30
APTT 27.7 Sec (23.4-35.0) 10/02/24 08:30
Sodium 135 mmol/L (135-145) 10/02/24 08:30
Potassium 4.9 mmol/L (3.5-5.1) 10/02/24 08:30
BUN 29 mg/dl (9-20) H 10/02/24 08:30
Creatinine 1.4 mg/dL (0.7-1.3) H 10/02/24 08:30
Glucose 107 mg/dl (70-99) H 10/02/24 08:30
Vital Signs and I&O:
Vital Signs
Temp Pulse Resp BP Pulse Ox
96.1 F L 69 16 158/84 98
10/13/24 12:00 10/13/24 05:59 10/13/24 05:10 10/13/24 05:59 10/13/24 05:10
Vital Signs
Temp Pulse Resp BP Pulse Ox
96.1 F L 69 16 158/84 98
10/13/24 12:00 10/13/24 05:59 10/13/24 05:10 10/13/24 05:59 10/13/24 05:10
Physical Exam
Physical Exam
GEN: No distress, intubated, sedated. on milvia hugger
HEENT: supple, mmm
LUNGS: CTA B/L, no wheezes/rales
CV: Reg, S1/S2, no murmur
ABD: soft, BS+, NT/ND
EXT: No cyanosis, clubbing, edema
NEURO: Gross non-focal
SKIN: Warm, pink, dry. No rash. Sternotomy incision c/d/i.
[2024-10-13 12:16] LABS: B.E. -3.1 mmol/L; HCO3 22.7 mmol/L (21-28); Ionized Calcium 1.24 mMOL/L (1.15-1.33); O2 Saturation % 98.9 % (94-98); PCO2 43 mmHg (35-48); PO2 129 mmHg (83-108); Potassium 3.7 mMOL/L (3.5-5.1); Sodium 138 mMOL/L (136-145); pH 7.33 (7.35-7.45)
[2024-10-13 12:16] LABS: Glucose - Point of Care 103 mg/dl (70-99)
[2024-10-13] MEDS: KCL 50 IV ×2 (12:31→13:32)
[2024-10-13 12:38] LABS: PT 17.4 Sec (11.4-14.6)
--- NOTE | 2024-10-13 13:00 | PTCARENOTE ---
Pt received from CV[facility] @1200; AAOx3/Sedated and intubated; Responds to verbal/tactile stimulation; Pupils round, reactive, and equal; NS rhythm on monitor; VSS; Epicardial pacemaker present A/V wires set to DDD with pacer settings A; 50/16/0.5
v:50/20/2; DP and radial pulses present; Lungs clear/diminished/crackles; ETT size 8 positioned and secured at 23 cm right lip; Ventilator settings SIMV 16/500/5/5 FiO2 40%; CTx2 to -20 cm wall suction draining bloody drainage - no air leak,
tidaling, or crepitus noted; Hypoactive BS; Mark catheter in place draining clear yellow urine; Skin Sternal Midline Incision; A-line in left radial artery - line zeroed and level; Huma at 45 present in right Cordis; CO/CI; 6.34/3.30 SVR 883
PIVx1; Cardene/precedex infusing; See nursing flowsheets for further details.
[2024-10-13 13:07] LABS: Glucose - Point of Care 57 mg/dl (70-99)
[2024-10-13 13:17] LABS: Blood Urea Nitrogen 24 mg/dl (9-20); Estimated Creatinine Clearance 58 ml/min; Glucose < 30 mg/dl (70-99); Magnesium 2.5 mg/dl (1.6-2.3)
[2024-10-13] MEDS: NSS 500 IV (13:21)
[2024-10-13] MEDS: NEURONTIN PO ×2 (13:22→17:44)
[2024-10-13] MEDS: ANCEF 10 IV ×2 (13:22)
[2024-10-13 13:29] LABS: Glucose - Point of Care 138 mg/dl (70-99)
--- NOTE | 2024-10-13 13:30 | PTCARENOTE ---
Pt came out to CVICU from CV[facility] with 2 severe episodes of hypoglycemia, (See MAR)
[2024-10-13 14:27] LABS: Glucose - Point of Care 106 mg/dl (70-99)
--- NOTE | 2024-10-13 14:39 | W.CON.NEPH ---
Consultation
-
Date/Time Consultation Requested: 10/13/2024 1 PM
Date/Time Consultation Performed: 10/13/2024 3 PM
Requesting Provider: Dr. Arce
Performing Provider: Dr. Winters
Reason for Consultation: Renal transplant
Medical History
-
Chief Complaint: Ascending aorta and aortic root replacement
History of Present Illness:
This is a 59-year-old gentleman who is followed in our office with Dr. Laureano for living related renal transplant from [facility] March 2016. His baseline creatinine runs approximately 1.5. He has been stable on a immunosuppressive regimen
including tacrolimus and sirolimus. He does have hypertension which is controlled with a multidrug regimen. He does have a known dilated ascending aorta and has had follow-up with cardiology and cardiothoracic surgery. Ultimately it was
determined that his bicuspid aortic valve with aortic root aneurysm would require surgical repair. He was therefore admitted for that procedure which was performed today. Prior to surgery he stopped sirolimus the week before surgery and started
mycophenolate 2 weeks before surgery. We are asked to assist with management of his renal transplant. Postoperatively he was able to come off all pressors. He did have hypoglycemia which is being managed conservatively. He is currently on the
vent and in the cardiovascular ICU.
Past Medical History
Living related renal transplant 2015 [facility]
IgA nephropathy resulting in ESRD
History of peritoneal dialysis
Ileostomy
Hypertension
Incisional hernia repair
Recurrent skin cancers
Colorectal cancer status post chemotherapy and surgery
Vasectomy
Supraumbilical hernia repair
Mohs procedure
Ascending aorta and aortic root replacement
Social History
Tobacco: Former Smoker
Alcohol: Occasional
Family History
Family History: Not Pertinent
Allergies / Home Medications
Allergy/AdvReac Type Severity Reaction Status Date / Time
amoxicillin [From Augmentin] Allergy DIARRHEA Verified 10/13/24 05:43
clavulanic acid Allergy DIARRHEA Verified 10/13/24 05:43
[From Augmentin]
Sulfa (Sulfonamide Allergy Rash Verified 10/13/24 05:43
Antibiotics)
sulfamethoxazole Allergy Rash Verified 10/13/24 05:43
[From Bactrim]
trimethoprim [From Bactrim] Allergy Rash Verified 10/13/24 05:43
�Medication �Instructions �Recorded �Confirmed �Type
loperamide 2 mg capsule 6 mg PO DAILY 05/04/15 10/13/24 History
lisinopril 10 mg tablet 10 mg PO DAILY 02/28/22 10/13/24 History
tacrolimus 1 mg tablet,extended 2 mg PO DAILY 02/28/22 10/13/24 History
release 24 hr (Envarsus XR)
amlodipine 5 mg tablet 5 mg PO DAILY 09/28/24 10/13/24 History
carvedilol 25 mg tablet 25 mg PO BID 09/28/24 10/13/24 History
dicyclomine 20 mg tablet 20 mg PO TID 09/28/24 10/13/24 History
sirolimus 1 mg tablet 1.5 mg PO DAILY 09/28/24 10/13/24 History
mycophenolate mofetil 500 mg tablet 500 mg PO BID 10/05/24 10/13/24 History
cyanocobalamin (vitamin B-12) mcg PO DAILY 10/13/24 History
1,000 mcg tablet (Vitamin B-12)
Review of Systems
-
Sedated
Unable to obtain full review of systems at this time due to: Patient Intubation
Physical Exam
Vital Signs
Vital Signs
Temp Pulse Resp BP Pulse Ox
98.1 F 79 16 101/67 97
10/13/24 14:00 10/13/24 14:00 10/13/24 14:00 10/13/24 14:00 10/13/24 14:00
Lab Results
WBC 5.2 10^3/uL (4.8-10.8) 10/02/24 08:30
RBC 4.17 10^6/uL (4.70-6.10) L 10/02/24 08:30
Plt Count 184 10^3/uL (130-400) 10/13/24 11:52
Sodium 135 mmol/L (135-145) 10/02/24 08:30
Potassium 4.9 mmol/L (3.5-5.1) 10/02/24 08:30
Chloride 108 mmol/L (98-107) H 10/02/24 08:30
Carbon Dioxide 21 mmol/L (22-30) L 10/02/24 08:30
BUN 24 mg/dl (9-20) H 10/13/24 11:52
Creatinine 1.4 mg/dL (0.7-1.3) H 10/13/24 11:52
eGFR 58.62 10/02/24 08:30
Glucose < 30 mg/dl (70-99) L* 10/13/24 11:52
Calcium 9.6 mg/dl (8.4-10.2) 10/02/24 08:30
Albumin 3.8 g/dl (3.5-5.0) 10/02/24 08:30
Laboratory Tests
10/02/24
08:30
Hgb 12.0 L
Creatinine 1.4 H
Physical Exam
Patient is sedated on the vent. Mood and affect, insight and judgment could not be assessed. Pupils are equal round and reactive to light, extraocular movements could not be assessed, sclera were anicteric. Hearing could not be assessed, ears and
nose are intact. Oropharynx was clear. Neck was supple with trachea midline and no thyromegaly. Heart was regular rate and rhythm without rubs. Lower extremities without edema. Lungs were clear to auscultation bilaterally and with normal
excursion. Abdomen was soft, nontender, with normal active bowel sounds, and no hepatosplenomegaly. Skin was without rash and with normal turgor.
Data Reviewed
-
Radiology: Image Personally Visualized and interpreted (Chest x-ray 10/13/2024 by my reading shows no acute disease)
Medical Tests (Nuc Med, Echo etc): Image Personally Visualized and interpreted (EKG 10/13/2024 by reading shows normal sinus rhythm nonspecific intraventricular conduction block)
Labs: Labs Reviewed by me
Old Records: Reviewed
Assessment/Plan
-
Assessment
Living related renal transplant, baseline 1.5
Aortic root, ascending aorta replacement
Hypertension
Colorectal cancer in remission
Bicuspid aortic valve with severe aortic insufficiency
Plan
Continue tacrolimus and mycophenolate for the time being
Conversion back to sirolimus will be done as an outpatient
Follow creatinine, BMP
Blood pressure stable but low off antihypertensive medications
[2024-10-13 15:07] LABS: Glucose - Point of Care 115 mg/dl (70-99)
[2024-10-13 15:56] LABS: Glucose - Point of Care 139 mg/dl (70-99)
[2024-10-13 16:00] LABS: B.E. -3.8 mmol/L; HCO3 21.5 mmol/L (21-28); O2 Saturation % 98.8 % (94-98); PCO2 39 mmHg (35-48); PO2 140 mmHg (83-108); pH 7.35 (7.35-7.45)
[2024-10-13 16:04] LABS: Hematocrit 30.2 % (39.0-52.0); Hemoglobin 10.3 g/dL (13.0-18.0)
[2024-10-13] MEDS: DILAUDID 0.5 MG IV ×2 (16:20→20:24)
--- NOTE | 2024-10-13 16:30 | PTCARENOTE ---
pt placed on CPAP @ 1525. ABG reviewed with CTPA pt extubated @ 1605 by RT to 6L NC w/o incident, able to state name/ and follow all commands
[2024-10-13] MEDS: LOW STRENGTH ASPIRIN 81 MG PO (16:45)
[2024-10-13] MEDS: PACERONE PO (17:44)
[2024-10-13] MEDS: TYLENOL PO (17:44)
[2024-10-13] MEDS: OFIRMEV 100 IV (17:49)
[2024-10-13 17:56] LABS: Glucose - Point of Care 168 mg/dl (70-99)
[2024-10-13] MEDS: ANCEF 5 IV (18:29)
[2024-10-13 18:52] LABS: Glucose - Point of Care 167 mg/dl (70-99)
[2024-10-13] MEDS: SENOKOT-S 1 TABLET PO (20:24)
[2024-10-13] MEDS: CARDENE 200 IV ×2 (20:26→23:39)
[2024-10-13 20:27] LABS: Glucose - Point of Care 136 mg/dl (70-99)
--- NOTE | 2024-10-13 21:00 | PTCARENOTE ---
Assumed care of pt from yonatan RN. Pt AAOx4. Pt SR on the tele monitor. HR 60-70s. Temporary epicardial A/V wires unplugged. BP's 100s/50s. Cardene infusing to keep SBPs 90-110. CI >2. CVP ~4. PAPs 20s/10s. Palpable pulses throughout. Pt on 2 L
NC. POX 98%. Mediastinal CTx2 to -20 suction, no airleak noted at this time, and output WNL. Lung sounds diminished B/L. Abdomen soft/nontender. Hypoactive BS. Mark catheter C/D/I and draining clear/yellow urine. Sternal incision intact and NACHO.
Right IJ cordis w/ SWAN at 45 cm intact. Left radial a-line intact. All lines leveled, zeroed, and flushed. Glycemic protocol followed. See MAR for pain medicine administration. See worklist for full nursing assessment and interventions. Call roman
within reach.
[2024-10-13 21:12] LABS: Glucose - Point of Care 116 mg/dl (70-99)
[2024-10-13] MEDS: NEURONTIN 100 MG PO (22:15)
[2024-10-13] MEDS: PACERONE 200 MG PO (22:15)
[2024-10-13] MEDS: TYLENOL 1000 MG PO (22:15)
[2024-10-13 22:17] LABS: Glucose - Point of Care 112 mg/dl (70-99)
[2024-10-14] VITALS (23 sets, daily range): BP systolic 91–130; BP diastolic 51–72; PULSE 64; O2SAT 91–92; BMI 25.8
[2024-10-14] MEDS: NITROGLYCERIN PREMIX 250 IV (00:19)
[2024-10-14 00:32] LABS: Glucose - Point of Care 95 mg/dl (70-99)
[2024-10-14] MEDS: DILAUDID 0.25 MG IV ×2 (00:36→04:36)
--- NOTE | 2024-10-14 00:46 | PTCARENOTE ---
Pt reassessed. Pt remains SR on the tele monitor. HR 60s. BP 100-110/50s. Cardene infusing to keep SBP 90-110. Nitro available if needed. PAPs 20s/10s. CVp~8. CI>2. POX 97% on 2 L NC. Mediastinal CTx2 intact and appropriate WNL. All surgical sites
stable. SWAN and a-line maintained. All lines leveled, zeroed, and flushed. Mark catheter intact and draining yellow urine. Glycemic protocol followed. See MAR for pain medication administration. Call roman within reach.
[2024-10-14] MEDS: ROXICODONE 5 MG PO ×5 (01:18→20:41)
[2024-10-14] MEDS: ANCEF 5 IV ×2 (01:18→09:25)
[2024-10-14 02:11] LABS: Glucose - Point of Care 122 mg/dl (70-99)
[2024-10-14] MEDS: CARDENE 200 IV ×2 (02:11→04:52)
[2024-10-14 03:30] LABS: Hematocrit 28.8 % (39.0-52.0); Mean Corp Hgb Conc. 34.7 g/dL (33.0-37.0); Mean Corpuscular Hgb 29.4 pg (27.0-31.0); Mean Corpuscular Volume 84.7 fL (80.0-94.0); Mean Platelet Volume 10.3 fL (7.4-10.4); Platelet Count 185 10^3/uL (130-400); Red Cell Dist. Width 13.1 % (11.5-14.5); White Blood Cell Count 17.1 10^3/uL (4.8-10.8)
--- NOTE | 2024-10-14 03:49 | PTCARENOTE ---
Pt reassessed. Remains SR on the tele monitor. HR 60-70s. BP 100s/50s. Cardene infusing to keep SBP 90-110. Low dose nitro when needed. CVP ~8. PAPs 20-30s/10-15. CI >2. Mediastinal CTx2 assessment unchanged. Pt is 94% on 2 L NC. Mark catheter
intact and draining clear/yellow urine. Glycemic protocol followed. All surgical sites stable. SWAN and a-line maintained. All lines leveled, zeroed, and flushed. Call roman within reach.
[2024-10-14 04:00] LABS: Blood Urea Nitrogen 35 mg/dl (9-20); Calcium 8.7 mg/dl (8.4-10.2); Carbon Dioxide 17 mmol/L (22-30); Chloride 107 mmol/L (98-107); Estimated Creatinine Clearance 54 ml/min; Glucose 105 mg/dl (70-99); Magnesium 2.3 mg/dl (1.6-2.3); Potassium 4.9 mmol/L (3.5-5.1); Sodium 135 mmol/L (135-145); eGFR 53.96
[2024-10-14 04:05] LABS: Glucose - Point of Care 92 mg/dl (70-99)
[2024-10-14 04:36] LABS: HCO3 17.5 mmol/L (21-28); O2 Saturation % 97.1 % (94-98); PCO2 31 mmHg (35-48); PO2 78 mmHg (83-108); pH 7.36 (7.35-7.45)
[2024-10-14 04:37] LABS: O2 Therapy 2L NC
--- NOTE | 2024-10-14 04:37 | W.PN.CT ---
Documented by User: Viktor Ramirez PA-C 10/14/24 05:31
Today's Communication / Plan
-
-pod #1
-no significant issues overnight
-kept SBP as ordered 90-[address] Arce, ok to liberate SBP to 130s this am and avoid Toradol
-CI 3.35, CO 6.44, SVR 770. Drips: Cardene 10, Insulin. Nitro is off
-CT output: 2 meds 140/340 in 12/24 hrs
-d/c swan
-d/c insulin
-d/c Mark
-low bicarb 17.5, base excess -7- gave 2 bicarb. Re-check ABG at 6 am (pending)
-s/p renal transplant (baseline Cr 1.4-1.5). Currently, on Cellcept and Tacrolimus. Conversion back to sirolimus will be done as an outpatient per Renal
-current meds (ASA, Amio, Lopressor, Bentyl, Feosol, Tacrolimus, Cellcept, Protonix)
-encourage IS, OOB
-appreciate everyone's input
Assessment / Plan
-
- Aortic root aneurysm with bicuspid aortic valve with moderately severe insufficiency with interval change - s/p Ascending aorta and aortic root replacement - Biological Bentall [29 mm valved conduit]; Reimplantation of coronary buttons [left and
right]; LAAE [35 mm device] by Dr. Arce on 10/13/24, pod #1
- Intraop KENNY: LVEF preop was 60% with no regional wma. His LV was mildly dilated. Following surgery, his EF remained the same at 55 to 60% with no new regional wall motion abnormalities. His LV did appear less dilated. After coming off
cardiopulmonary bypass, there was no regional wall motion abnormalities and normal RV function. His left atrial appendage was verified to be free of any thrombus or debris preoperatively and clipped postoperatively
- Aortic root and SN aortic aneurysm with interval growth
- Chronic type A aortic root dissection
- Hypertension
- Chronically immunosuppressed
- Status post renal transplantation for IgA nephropathy
- Baseline CKD with creatinine of 1.4
- Colorectal cancer status post resection, remission
- Moderately severe aortic valve insufficiency with bicuspid valve morphology [left right fusion]
- History of radiation therapy for colon cancer
- Recurrent skin cancer
- Acute postop blood loss anemia- stable, no transfusion
- Acute postop atelectasis
- Acute postop hypovolemia with subsequent hypervolemia
Discussed patient care with: Nursing and Care Team
Subjective
-
Date of Service: October 14, 2024
Objective Data
-
PT 17.4 Sec (11.4-14.6) H 10/13/24 11:52
INR 1.40 10/13/24 11:52
APTT 32.0 Sec (23.4-35.0) 10/13/24 11:52
Vital Signs
Vital Signs
Temp Pulse Resp BP Pulse Ox
97.1 F 69 16 96/58 97
10/14/24 01:00 10/14/24 01:00 10/14/24 01:00 10/14/24 01:00 10/14/24 01:00
CT Intake/Output/Weight
10/13/24 10/13/24 10/14/24
06:59 18:59 06:59
Intake Total 549.0 / 1102.7 553.7 / 1102.7
Output Total 735 / 1245 510 / 1245
Balance -186.0 / -142.3 43.7 / -142.3
SaO2: 97
Physical Exam
-
General: Awake and AOx3
Cardiovascular: Regular rate & rhythm, No Murmurs and No Rub
Respiratory: Decreased Breath Sounds
Sternum: Stable
Incision: Clean, Dry and Intact
Extremities: No Edema (warm b/l)
Abdomen: soft, nontender, nondistended, +decreased bowel sounds
Data Reviewed
-
Lab Results: Results Reviewed
Medications: Active Meds Reviewed
Chest X-Ray: Report Reviewed and Image Reviewed
ECG: Report Reviewed and Image Reviewed

Documented by User: DYLAN Hall 10/14/24 12:06
Assessment / Plan
-
- Aortic root aneurysm with bicuspid aortic valve with moderately severe insufficiency with interval change - s/p Ascending aorta and aortic root replacement - Biological Bentall [29 mm valved conduit]; Reimplantation of coronary buttons [left and
right]; LAAE [35 mm device] by Dr. Arce on 10/13/24, pod #1
- Intraop KENNY: LVEF preop was 60% with no regional wma. His LV was mildly dilated. Following surgery, his EF remained the same at 55 to 60% with no new regional wall motion abnormalities. His LV did appear less dilated. After coming off
cardiopulmonary bypass, there was no regional wall motion abnormalities and normal RV function. His left atrial appendage was verified to be free of any thrombus or debris preoperatively and clipped postoperatively
- Aortic root and SN aortic aneurysm with interval growth
- Chronic type A aortic root dissection
- Hypertension
- Chronically immunosuppressed
- Status post renal transplantation for IgA nephropathy
- Baseline CKD3a with creatinine of 1.4
- Colorectal cancer status post resection, remission
- Moderately severe aortic valve insufficiency with bicuspid valve morphology [left right fusion]
- History of radiation therapy for colon cancer
- Recurrent skin cancer
- Acute postop blood loss anemia- stable, no transfusion
- Acute postop atelectasis
- Acute postop hypovolemia with subsequent hypervolemia
[2024-10-14] MEDS: SODIUM BICARBONATE 100 MEQ IV (05:01)
[2024-10-14] MEDS: TYLENOL 1000 MG PO ×3 (05:01→21:28)
--- NOTE | 2024-10-14 05:45 | PTCARENOTE ---
Daryl cee. A-eric and alaina to remain per CTPA. Bicarb x2. Per Dr. Yazmin reynolds to keep SBP's 90-130. Nitro off. Tapering Cardene down as tolerated. VSS.
[2024-10-14 06:07] LABS: Glucose - Point of Care 138 mg/dl (70-99)
[2024-10-14 06:23] LABS: B.E. -4.8 mmol/L; Ionized Calcium 1.13 mMOL/L (1.15-1.33); PCO2 30 mmHg (35-48); PO2 77 mmHg (83-108); pH 7.41 (7.35-7.45)
[2024-10-14 06:24] LABS: O2 Therapy 2L NC
[2024-10-14] MEDS: SODIUM BICARBONATE 50 MEQ IV (07:38)
[2024-10-14] MEDS: CALCIUM GLUCONATE 100 IV (07:39)
[2024-10-14] MEDS: LASIX 40 MG IV (07:39)
--- NOTE | 2024-10-14 07:53 | W.PN.ANS.POP ---
Anesthesia Post Operative
- Anesthesia Post Op Note
Vital Signs Stable-See Nursing Note: Yes
Airway Patent: Yes
Adequate Pain Control: Yes
Change in Mental Status: No
Current Postoperative Nausea & Vomiting: No
Anesthesia Complications: No
General Anesthetic Recall: No
Unplanned Admission: No
Post Op Hydration Adequate: Yes
--- NOTE | 2024-10-14 08:00 | PTCARENOTE ---
pt received from previous RN, oriented, OOB in chair. SR on the monitor, HR 60s. A&V wires insulated. SBP 110-120s. Cardene gtt running as ordered. palpable pulses. trace LE edema. pt on 4LNC, 96% POX. lungs diminished. IS encouraged. CTx2, no air
leak or crepitus. pt abdomen s/n, denies n/v. tolerating clears. sternal incision NACHO. chest tube site c/d/i. RIJ cordis maintained. PIV. L radial Miryam flushed, zeroed, and calibrated. insulin gtt running as ordered. lab work drawn. see worklist
for VS, I&O, and assessment.
[2024-10-14] MEDS: CELLCEPT 500 MG PO ×2 (08:02→20:25)
[2024-10-14] MEDS: LOW STRENGTH ASPIRIN 81 MG PO (08:02)
[2024-10-14] MEDS: PROTONIX 40 MG PO (08:02)
[2024-10-14] MEDS: MAGNESIUM OXIDE 500 MG PO ×2 (08:02→20:25)
[2024-10-14] MEDS: BENTYL 20 MG PO ×3 (08:02→21:28)
[2024-10-14] MEDS: COREG 25 MG PO ×2 (08:02→20:25)
[2024-10-14] MEDS: FEOSOL 325 MG PO (08:02)
[2024-10-14] MEDS: PACERONE 200 MG PO ×3 (08:02→21:29)
[2024-10-14] MEDS: ENVARSUS XR 2 MG PO (08:02)
[2024-10-14] MEDS: BACTROBAN 2% OINTMENT 1 APPLIC NASAL ×2 (08:03→20:26)
[2024-10-14] MEDS: LIDOCAINE 4% PATCH 1 PATCH TOPICAL (08:03)
[2024-10-14] MEDS: VITAMIN C 500 MG PO (08:03)
[2024-10-14] MEDS: SENOKOT-S PO ×2 (08:04→20:26)
[2024-10-14 08:09] LABS: Glucose - Point of Care 118 mg/dl (70-99)
--- NOTE | 2024-10-14 08:14 | W.PN.INTV ---
Today's Communication / Plan
Recommendations
Up OOB as tolerated
Encouraged incentive parameter
Pain control
Cardiac rehab consult
Continue immunosuppression with tacrolimus + CellCept
Amiodarone per CT surgery team
Continue ASA
Goal BG 140�180
Wireless Network Engineer service will continue to follow along while patient remains in the CVICU. Once transferred to CVICU�telemetry status, then we will sign off at that time. Once we are signed off, please call back with any questions or concerns.
Assessment
-
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
aortic root aneurysm, bicuspid aortic valve, nonrheumatic aortic valve insufficiency, incisional hernia, history of shingles on right buttocks, erectile dysfunction, recurrent skin cancer, and anemia who presents with elective ascending aorta +
aortic root replacement. Patient known to the cardiothoracic surgery service, with last visit on 09/22/[address] Arce. He has had serial echocardiograms as well as CAT scans performed from 2020 until now. Most recent CTA of the chest on
10/09/2024 shows a dilated aortic root measuring 4.8 cm with the sinuses of Valsalva measuring 4.8 x 4.5 x 4.8 cm. The ascending aorta has a short axis diameter of 4.1 cm. Most recent echo from 09/21/2024 showed bicuspid aortic valve with fusion of
the right and left coronary cusps and adequate leaflet excursion with moderate to severe aortic insufficiency with a severely dilated aortic root, measuring 5.1 cm at the sinuses of Valsalva, 5 cm at the sinotubular junction, and 5.8 cm ascending
aorta. Since prior echo in September 2023, ascending aorta has increased from 4.9 cm to 5.8 cm. Patient discussed surgical intervention for his aortic root dilation and he has agreed to this procedure. Patient subsequently had a left heart
catheterization on 10/05/2024 as part of preoperative workup, showing nonobstructive CAD. Today, he underwent ascending aorta and aortic root replacement with a biological Bentall 29 mm valved conduit, with reimplantation of left and right coronary
buttons, and left atrial appendage exclusion with a 35mm device. Patient tolerated the procedure well and was transferred to the CVICU with mediastinal chest tubes x 2. Wireless Network Engineer service is now consulted for additional management/recommendations.
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
peritoneal dialysis, dilated ascending aorta, bicuspid aortic valve, moderate to severe aortic insufficiency, history of IgA nephropathy, incisional hernia, history of shingles on right buttocks (2016), ED, recurrent skin cancer, anemia, chronic
loose stools
Impression:
#Aortic root aneurysm with bicuspid aortic valve with moderate�severe aortic valve insufficiency with chronic type aortic root dissection s/p ascending aorta + aortic root replacement with biological bentall 29 mm valved conduit, reimplantation of
left and right coronary buttons (POD #1)
#Acute anemia due to above
#CKD
#Hypoglycemia - now euglycemic
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
#History of colorectal cancer (diagnosed in March 2012) s/p ileostomy with reversal (2012) + s/p chemotherapy + XRT now in remission
#Erectile dysfunction
#Former tobacco smoker (quit 2011)
Plan:
Patient was extubated on 10/13/2024 to nasal cannula, and is currently saturating 90% on room air and breathing comfortably
Continue to maintain SpO2 >90-94%
prn nebulized bronchodilators - not currently bronchospastic
Incentive incentive spirometer
Removal of R-IJ cordis as per CT surgery
Maintain MAP>65
Replete electrolytes with K>4, Mg>2
Monitor chest tube output (mediastinal chest tubes x 2)
Monitor hemoglobin
Monitor platelet count and coags
Transfuse blood products as needed to maintain Hb>7g/dL, plt>50k (given post-operative status)
CT surgery managing chest tubes
Monitor blood sugar to maintain euglycemia with goal BG 140-180
Insulin drip now DC'd --> recommend to use ISS to maintain BG goal as above
Aspiration precautions
DVT prophylaxis
Early nutrition
Early mobilization
Wireless Network Engineer service will continue to follow along while patient remains in the CVICU. Once transferred to CVICU�telemetry status, then we will sign off at that time. Once we are signed off, please call back with any questions or concerns.
Total time spent today was 58 minutes for this encounter. Time includes reviewing laboratory test/imaging results, reviewing pertinent medical records, obtaining and reviewing medical history, performing an appropriate exam, ordering medications,
tests and procedures. Time also includes documentation of this encounter, coordinating patient care and communicating with other healthcare professionals. Total time does not include separately billed tests performed on this date of service.
Subjective Dataa
Subjective Data
Date of Service:
Date of Service: October 14, 2024
Chief Complaint: Wireless Network Engineer Follow Up
Subjective:
Patient was seen today at bedside. He is resting in bed in no acute distress. Heart rate 67, BP 96/51 and saturating 90% on room air. He denies shortness of breath. Has some mild chest pain from his incision. R�IJ cordis in place. Denies [place],
nausea, vomiting, fevers or chills.
Review of Systems
General: Other (Negative unless mentioned above)
Objective Data
Data Reviewed
Vital Signs / I&O / Oxygen:
Vital Signs
Temp Pulse Resp BP Pulse Ox
97.6 F 66 19 91/66 92
10/14/24 08:00 10/14/24 09:10 10/14/24 09:10 10/14/24 09:00 10/14/24 09:10
Intake and Output
10/13/24 10/14/24 10/15/24
06:59 06:59 06:59
Intake Total 1580.1 / 1617.4 112.6 / 112.6
Output Total 1540 / 1605 565 / 565
Balance 40.1 / 12.4 -452.4 / -452.4
SaO2 [CPAP] 98
SaO2 [SIMV] 96
SaO2 92
Nasal Cannula flow liters per 3
minute
Physical Exam
General: Respiratory Distress (negative), Comfortable, Chills (negative) and Sweats (negative)
HEENT: Normocephalic, Anicteric and Other (R-IJ cordis in place)
Cardiovascular: S1-S2, Murmur ([place] heard across precordium) and Peripheral Edema (negative)
Respiratory: Clear, Wheeze (negative), Crackles (negative), Rhonchi (negative) and Non-Labored Respirations
GI: Soft, Non Distended, Non Tender and Normal Bowel Sounds
Neurology: AO x 3 and Tremors (negative)
Skin: Warm, Dry, Cyanosis (negative) and Jaundice (negative)
Labs/Micro/Reports
Lab Data
10/14/24 03:14
Laboratory Results
10/13/24 10/13/24 10/14/24
11:52 15:54 04:30
PT 17.4 H
INR 1.40
APTT 32.0
pH 7.33 L 7.35 7.36
pCO2 43 39 31 L
pO2 129 H 140 H 78 L
HCO3 22.7 21.5 17.5 L
O2 Delivery Level Not Reportable 2l nc
10/14/24 10/14/24
06:15 08:45
PT
INR
APTT
pH 7.41 7.44
pCO2 30 L 34 L
pO2 77 L 96
HCO3 19.0 L 23.1
O2 Delivery Level 2l nc
[2024-10-14 08:54] LABS: B.E. -0.7 mmol/L; HCO3 23.1 mmol/L (21-28); O2 Saturation % 98.8 % (94-98); PCO2 34 mmHg (35-48); PO2 96 mmHg (83-108); pH 7.44 (7.35-7.45)
[2024-10-14] MEDS: NEURONTIN 100 MG PO ×3 (09:25→21:28)
[2024-10-14 09:29] LABS: Lactic Acid 0.9 mmol/L (0.7-2.0)
[2024-10-14 09:31] LABS: B.E. - POC -2.7 mmol/L; Glucose - POC 86 mg/dl (70-99); HCO3 - POC 23 mmol/L (21-28); Hematocrit - POC 27 % PCV (42-52); Hemodilution- POC Yes; Hemoglobin Calculated - POC 9.1; Ionized Calcium - POC 1.22 mmol/L (1.15-1.33); Lactate - POC 1.17 mmol/L (0.36-0.75); PCO2 - POC 43 mmHg (35-48); PO2 - POC 473 mmHg (83-108); Potassium - POC 3.6 mmol/L (3.5-5.1); Sodium - POC 143 mmol/L (136-145); Specimen Type - POC Arterial; pH - POC 7.34 (7.35-7.45)
[2024-10-14 10:21] LABS: Glucose - Point of Care 109 mg/dl (70-99)
--- NOTE | 2024-10-14 11:00 | CM ---
Chart reviewed. Patient OOB sitting in the chair, at bedside. Patient is independent of ADLS, lives with his in a 2 STH, 1 JIE, 0 DME. Plan is for the patient to return home with CT Transitional RN. CM to follow
[2024-10-14 11:28] LABS: Blood Urea Nitrogen 36 mg/dl (9-20); Calcium 8.9 mg/dl (8.4-10.2); Carbon Dioxide 23 mmol/L (22-30); Chloride 100 mmol/L (98-107); Estimated Creatinine Clearance 51 ml/min; Glucose 107 mg/dl (70-99); Potassium 4.3 mmol/L (3.5-5.1); Sodium 131 mmol/L (135-145); eGFR 49.94
--- NOTE | 2024-10-14 11:36 | W.PN.NEPH.PH ---
Today's Communication / Plan
-
follow labs, prn lasix
Assessment/Plan
-
Assessment
Living related renal transplant, baseline 1.5
Aortic root, ascending aorta replacement
Hypertension
Colorectal cancer in remission
Bicuspid aortic valve with severe aortic insufficiency
Plan
cr at 1.6 at baseline
off just now, monitor UOP
agree with lasix, wt is up
hyponatremia likely mild hypervolemia
BP soft, off nitro and cardene
Continue tacrolimus and mycophenolate for the time being
Conversion back to sirolimus will be done as an outpatient
d/w pt and nursing
-
-
Date of Service: October 14, 2024
CC / HPI / ROS
-
Chief Complaint:
CKD, h/o KTP
History of Present Illness:
cr up ay 1.6 but pt reports at baseline
non oliguric off now
BP soft, improving off cardene, nitro
wt is up
Review of Systems:
no sob at rest
no dizziness
CT present
Labs
-
Labs:
WBC 17.1 10^3/uL (4.8-10.8) H 10/14/24 03:14
RBC 3.40 10^6/uL (4.70-6.10) L 10/14/24 03:14
Hgb 10.0 g/dL (13.0-18.0) L 10/14/24 03:14
Hct 28.8 % (39.0-52.0) L 10/14/24 03:14
Plt Count 185 10^3/uL (130-400) 10/14/24 03:14
Sodium 131 mmol/L (135-145) L 10/14/24 11:00
Potassium 4.3 mmol/L (3.5-5.1) 10/14/24 11:00
Chloride 100 mmol/L (98-107) 10/14/24 11:00
Carbon Dioxide 23 mmol/L (22-30) 10/14/24 11:00
BUN 36 mg/dl (9-20) H 10/14/24 11:00
Creatinine 1.6 mg/dL (0.7-1.3) H 10/14/24 11:00
eGFR 49.94 10/14/24 11:00
Glucose 107 mg/dl (70-99) H 10/14/24 11:00
Calcium 8.9 mg/dl (8.4-10.2) 10/14/24 11:00
Albumin 3.8 g/dl (3.5-5.0) 10/02/24 08:30
Physical Exam
-
Vital Signs:
Vital Signs
Temp Pulse Resp BP Pulse Ox
97.6 F 65 17 105/67 93
10/14/24 08:00 10/14/24 11:15 10/14/24 11:15 10/14/24 11:00 10/14/24 11:15
Cardiovascular:: Regular rate and rhythm
Respiratory:: Bilateral: CTA (decreased, shallow breathing)
Lung Excursion:: Normal
Abdomen:: Nontender and Soft
Extremity Edema:: None: Bilateral: (trace)
Catheter: No
[2024-10-14 11:46] LABS: Glucose - Point of Care 101 mg/dl (70-99)
[2024-10-14] MEDS: NSS IV (11:48)
--- NOTE | 2024-10-14 11:52 | PN.CDI ---
CDI
- -
CDI:
Physician Documentation Request
Admit Date: 10/13/24 05:[address] team,
Please review the following and provide your response in the progress notes.
Clinical Indicators:
Pt admitted for Ascending aorta and aortic root replacement.
10/14 Progress note: 'Baseline CKD with creatinine of 1.4'
Laboratory Tests
10/02/24 10/14/24 10/14/24
08:30 03:14 11:00
Creatinine 1.4 H 1.5 H 1.6 H
eGFR 58.62 53.96 49.94
Clarify which of the following accurately represents the patient's renal status:
CKD, please provide stage - see criteria
Other
Unable to determine
Stages of Chronic Kidney Disease*
Level Description GFR
G1 Normal or High >90
G2 Mildly decreased 60-89
G3a Mildly to moderately decreased 45-59
G3b Moderately to severely decreased 30-44
G4 Severely decreased 15-29
G5 Kidney failure <15
Use of terms such as suspected, likely, concern for, or probable (associated with a specific diagnosis that is being evaluated, monitored, or treated as if it exists) are acceptable and can be coded in the inpatient setting, when documented at the
time of discharge.
Thank you,
Mona Bernard RN, BSN
CDI Specialist
[place] text
Please use your independent medical judgment in providing your response.
*Source: Kidney Disease: Improving Global Outcomes (KDIGO) 2012
--- NOTE | 2024-10-14 12:33 | PTCARENOTE ---
pt VSS, no changes in assessment. L radial Miryam dc'd as ordered, dressing c/d/i. A&V wires insulated as ordered. insulin gtt dc'd as ordered. voids. pt washed w/ CHG wipes, gown and linens changed. face washed, oral hygiene performed. pt placed
back to bed, chest tube dressing changed.
--- NOTE | 2024-10-14 13:19 | W.PN.CARDCBS ---
Addendum entered and electronically signed by Lyndsay Paiz MD 10/14/24 14:00:
I saw and examined the patient.
The Florist's note was reviewed and I agree with the note.
Comment: Patient is doing well. He did not get a lot of sleep last night so is tired and wanting to sleep. Tells me that the chest discomfort is bearable.
Vital signs and lab work reviewed. Leukocytosis noted with stable hemoglobin and renal function at creatinine of 1.6. On exam patient is well-appearing, no acute distress, appears fatigued, in bed resting, regular rate, normal S1 and S2, no
murmurs, rubs or gallops, sternotomy wound is well-healing, lungs are clear to auscultation bilaterally except decreased breath sounds at bases, abdomen is soft, nontender, nondistended with active bowel sounds, warm extremities.
Recommendations
1. Patient is status post aortic root and ascending aortic replacement with left atrial appendage clip on October 13, 2024.
2. Continue to monitor blood counts and renal function closely with baseline CKD.
3. Living related donor renal transplant history for IgA nephropathy in 2016 with chronically immunosuppressed state.
4. Continue with supportive care, encourage out of bed to chair once rested. Strongly encourage incentive spirometry
Lyndsay Paiz MD, [facility]
Original Note:
Today's Communication / Plan
-
continue post op care
follow Cr
Impression / Plan
-
Primary Campground Manager: Dr. Whitlock
Assessment:
Aortic root and SN aortic aneurysm with interval growth and AI with bicuspid morphology s/p ascending aorta and aortic root replacement, JOHN clip 10/13/24
Chronic type A aortic root dissection
HTN
Chronically immunosuppressed state
Living related donor renal transplantation for IgA nephropathy 2015
CKD with baseline Cr 1.4
Colorectal cancer status post resection and radiation/chemotherapy, in remission
Recurrent skin cancer
Post op hypoglycemia
ECHO 09/21/24: EF 56%, mild concentric LVH, MAC, bicuspid aortic valve with fusion of right and left coronary cusps, moderate to severe AI, severely dilated aortic root measuring 5.1 cm at sinus of Valsalva, 5.0 cm at sinotubular junction, 5.8 cm
ascending aorta
Plan:
-s/p ascending aorta and aortic root replacement, JOHN clip 10/13/24
-extubated. off all pressors
-remains on supp O2, wean off as able
-BPs at post op goal
-EKG with improvement in QRS compared to 10/13. will follow
-prior to admission was on norvasc 5mg daily, coreg 25mg BID, lisinopril 10mg daily. coreg resumed 10/14. resume post op as able
-in SR on review of tele. continue amio
-Cr 1.6 on 10/14. nephrology following given history of renal transplant
-continue post op care
-IS encouraged
-d/w nursing
Progress Note - Campground Manager
Subjective
Date of Service: October 14, 2024
reports fatigue. states pain adequately controlled.
Objective
Labs:
10/14/24 03:14
10/14/24 11:00
Labs
Hgb 10.0 g/dL (13.0-18.0) L 10/14/24 03:14
Hct 28.8 % (39.0-52.0) L 10/14/24 03:14
Plt Count 185 10^3/uL (130-400) 10/14/24 03:14
PT 17.4 Sec (11.4-14.6) H 10/13/24 11:52
INR 1.40 10/13/24 11:52
APTT 32.0 Sec (23.4-35.0) 10/13/24 11:52
Sodium 131 mmol/L (135-145) L 10/14/24 11:00
Potassium 4.3 mmol/L (3.5-5.1) 10/14/24 11:00
BUN 36 mg/dl (9-20) H 10/14/24 11:00
Creatinine 1.6 mg/dL (0.7-1.3) H 10/14/24 11:00
Glucose 107 mg/dl (70-99) H 10/14/24 11:00
Vital Signs and I&O:
Vital Signs
Temp Pulse Resp BP Pulse Ox
97.3 F 70 20 108/65 93
10/14/24 12:00 10/14/24 12:00 10/14/24 12:00 10/14/24 12:00 10/14/24 12:00
Vital Signs
Temp Pulse Resp BP Pulse Ox
97.3 F 70 20 108/65 93
10/14/24 12:00 10/14/24 12:00 10/14/24 12:00 10/14/24 12:00 10/14/24 12:00
Intake & Output
10/12/24 10/13/24 10/14/24 10/15/24
07:59 07:59 07:59 07:59
Intake Total 1617.4 / 1655.4 124.1 / 124.1
Output Total 1605 / 1755 795 / 795
Balance 12.4 / -99.6 -670.9 / -670.9
Physical Exam
Physical Exam
GEN: No distress, awake, alert, oriented x3. on supp O2
HEENT: supple, anicteric, mmm, eomi
LUNGS: Diminished BS, no wheezes
CV: Reg, S1/S2, no murmur
EXT: No cyanosis, clubbing. trace edema of B/L LE
NEURO: Gross non-focal
SKIN: Warm, pink, dry. No rash. Sternotomy incision c/d/i.
[2024-10-14] MEDS: FERRLECIT 110 MG IV (14:23)
--- NOTE | 2024-10-14 16:20 | PTCARENOTE ---
pt VSS, no changes in assessment. pt resting between care. OOB to chair w/ minimal assist for dinner. Roxicodone 5mg PO given for pain.
--- NOTE | 2024-10-14 21:00 | PTCARENOTE ---
Assumed care of pt from dayshift RN. Walking rounds completed. Pt AAOx3. OOB to chair. Pt SR on the tele monitor. HR 70s. Temporary epicardial A/V wires intact and insulated. BP stable. Palpable pulses throughout. Trace LE edema. B/L hands slightly
puffy. Pt 97% on 2 L NC. Lung sounds diminished B/L in the base. Mediastinal CTx2 to -20 suction, no airleak at this time, and output minimal. Deep breathing and IS encouraged. Abdomen soft/nontender. Pt due to void for this shift. +BS. No N/V.
Sternal incision approximated and NACHO. Right IJ cordis and PIV intact. Pt assisted out of the chair and into bed w/ assist x2. See worklist for full nursing assessment and interventions. See MAR for pain medication administration. Call roman within
reach.
[2024-10-15] VITALS (24 sets, daily range): BP systolic 92–134; BP diastolic 57–81; PULSE 68; O2SAT 91; BMI 26.4
--- NOTE | 2024-10-15 00:06 | PTCARENOTE ---
No acute change in assessment. Pt remains SR on the tele monitor. HR 70s. BP stable. Pt on 2 L NC. POX 96%. Mediastinal CTx2 assessment unchanged. Output minimal. All surgical sites stable. Pt voided in urinal. Call roman within reach.
[2024-10-15] MEDS: ROXICODONE 5 MG PO ×3 (02:03→15:29)
--- NOTE | 2024-10-15 03:37 | W.PN.CT ---
Today's Communication / Plan
-
-pod #2
-no issues overnight
-CT outputs: 2 med 35/160 in 12/24 hrs
-diuresed well with 40 iv Lasix on 10/14- UO 400/1805 in 12/24 hrs
-follow Cr - 1.8 today (1.6-1.5 on 10/14 and 1.4 preop)
-current meds (ASA, Amio, Coreg, Bentyl, Feosol, Tacrolimus, Cellcept, Protonix)
-encourage IS, OOB
-appreciate everyone's input
Assessment / Plan
-
- Aortic root aneurysm with bicuspid aortic valve with moderately severe insufficiency with interval change - s/p Ascending aorta and aortic root replacement - Biological Bentall [29 mm valved conduit]; Reimplantation of coronary buttons [left and
right]; LAAE [35 mm device] by Dr. Arce on 10/13/24, pod #2
- Intraop KENNY: LVEF preop was 60% with no regional wma. His LV was mildly dilated. Following surgery, his EF remained the same at 55 to 60% with no new regional wall motion abnormalities. His LV did appear less dilated. After coming off
cardiopulmonary bypass, there was no regional wall motion abnormalities and normal RV function. His left atrial appendage was verified to be free of any thrombus or debris preoperatively and clipped postoperatively
- Aortic root and SN aortic aneurysm with interval growth
- Chronic type A aortic root dissection
- Hypertension
- Chronically immunosuppressed
- Status post renal transplantation for IgA nephropathy
- Baseline CKD3a with creatinine of 1.4
- Colorectal cancer status post resection, remission
- Moderately severe aortic valve insufficiency with bicuspid valve morphology [left right fusion]
- History of radiation therapy for colon cancer
- Recurrent skin cancer
- Acute postop blood loss anemia- stable, no transfusion
- Acute postop atelectasis
- Acute postop hypovolemia with subsequent hypervolemia
- Acute postop hyponatremia
- MISAEL on CKD
Discussed patient care with: Nursing
Subjective
-
Date of Service: October 15, 2024
Objective Data
-
PT 17.4 Sec (11.4-14.6) H 10/13/24 11:52
INR 1.40 10/13/24 11:52
APTT 32.0 Sec (23.4-35.0) 10/13/24 11:52
Vital Signs
Vital Signs
Temp Pulse Resp BP Pulse Ox
98 F 72 16 134/75 93
10/15/24 00:01 10/15/24 03:30 10/15/24 00:01 10/15/24 00:01 10/15/24 03:30
CT Intake/Output/Weight
10/14/24 10/14/24 10/15/24
06:59 18:59 06:59
Intake Total 1031.1 / 1617.4 1751.4 / 1801.4 50 / 1801.4
Output Total 805 / 1605 1530 / 1965 435 / 1965
Balance 226.1 / 12.4 221.4 / -163.6 -385 / -163.6
SaO2: 93
Physical Exam
-
General: Awake and AOx3
Cardiovascular: Regular rate & rhythm, No Murmurs and No Rub
Respiratory: Decreased Breath Sounds
Sternum: Stable
Incision: Clean, Dry and Intact
Extremities: Other (trace edema b/l)
Abdomen: distended, soft, nontender, +decreased bowel sounds
Data Reviewed
-
Lab Results: Results Reviewed
Medications: Active Meds Reviewed
Chest X-Ray: Report Reviewed and Image Reviewed
ECG: Report Reviewed and Image Reviewed
--- NOTE | 2024-10-15 04:22 | PTCARENOTE ---
No acute change in assessment. Pt SR on the tele monitor. HR 70s. BP stable. Pt is 98% on RA. All surgical sites stable. Labs drawn and sent. Call roman within reach.
[2024-10-15 04:50] LABS: Hemoglobin 9.2 g/dL (13.0-18.0); Mean Corp Hgb Conc. 32.9 g/dL (33.0-37.0); Mean Corpuscular Hgb 28.8 pg (27.0-31.0); Mean Corpuscular Volume 87.8 fL (80.0-94.0); Mean Platelet Volume 10.9 fL (7.4-10.4); Platelet Count 158 10^3/uL (130-400); Red Blood Cell Count 3.19 10^6/uL (4.70-6.10); Red Cell Dist. Width 13.3 % (11.5-14.5); White Blood Cell Count 16.5 10^3/uL (4.8-10.8)
[2024-10-15 04:57] LABS: Blood Urea Nitrogen 44 mg/dl (9-20); Calcium 8.7 mg/dl (8.4-10.2); Carbon Dioxide 26 mmol/L (22-30); Chloride 96 mmol/L (98-107); Estimated Creatinine Clearance 45 ml/min; Glucose 159 mg/dl (70-99); Magnesium 2.2 mg/dl (1.6-2.3); Potassium 4.4 mmol/L (3.5-5.1); Sodium 128 mmol/L (135-145); eGFR 43.36
[2024-10-15] MEDS: TYLENOL 1000 MG PO ×3 (05:33→21:29)
--- NOTE | 2024-10-15 08:00 | PTCARENOTE ---
Patient received from night club manager resting oob in chair, AAO x 3. RIJ Cordis present. Epicardial A+V wires, insulated to chest wall. Mediastinal chest tubes x 2, Y-connected to one pleurevac - no air leak or crepitus noted on -20cm suction. All
procedural sites stable. Patient updated to plan of care for the day, in agreement. See work list for full assessment and interventions performed.
[2024-10-15] MEDS: LIDOCAINE 4% PATCH 1 PATCH TOPICAL (08:23)
[2024-10-15] MEDS: LASIX 20 MG IV (08:24)
[2024-10-15] MEDS: ENVARSUS XR 2 MG PO (08:25)
[2024-10-15] MEDS: VITAMIN C 500 MG PO (08:25)
[2024-10-15] MEDS: MAGNESIUM OXIDE 500 MG PO ×2 (08:25→20:28)
[2024-10-15] MEDS: COREG 25 MG PO ×2 (08:25→20:28)
[2024-10-15] MEDS: PACERONE 200 MG PO ×3 (08:25→21:29)
[2024-10-15] MEDS: LOW STRENGTH ASPIRIN 81 MG PO (08:26)
[2024-10-15] MEDS: FEOSOL 325 MG PO (08:26)
[2024-10-15] MEDS: PROTONIX 40 MG PO (08:26)
[2024-10-15] MEDS: CELLCEPT 500 MG PO ×2 (08:26→20:27)
[2024-10-15] MEDS: NEURONTIN 100 MG PO ×3 (08:26→21:29)
[2024-10-15] MEDS: BACTROBAN 2% OINTMENT 1 APPLIC NASAL ×2 (08:26→20:28)
[2024-10-15] MEDS: BENTYL 20 MG PO ×3 (08:26→21:29)
[2024-10-15] MEDS: SENOKOT-S PO ×2 (08:27→20:34)
--- NOTE | 2024-10-15 10:14 | W.PN.NEPH.PH ---
Today's Communication / Plan
-
ok for extra lasix
check u studies, consider samsca for hyponatremia
Assessment/Plan
-
Assessment
Living related renal transplant, baseline 1.5
Aortic root, ascending aorta replacement
Hypertension
Colorectal cancer in remission
Bicuspid aortic valve with severe aortic insufficiency
Plan
cr at 1.8 slightly up
non oliguric off , follow bladder scan
cont lasix as wt is up, ok for extra dose if needed
hyponatremia likely mild hypervolemia, check U osmo, U na
consider sasmca
BP soft off meds
Continue tacrolimus and mycophenolate for the time being
Conversion back to sirolimus will be done as an outpatient
d/w pt and nursing
-
-
Date of Service: October 15, 2024
CC / HPI / ROS
-
Chief Complaint:
CKD, h/o KTP
History of Present Illness:
cr up ay 1.8 m sodium down to 128
non oliguric off now
BP soft, improving off cardene, nitro
wt is up
hb decreasing 9.2
Review of Systems:
no sob at rest
feels well today
pain controlled
Labs
-
Labs:
WBC 16.5 10^3/uL (4.8-10.8) H 10/15/24 04:20
RBC 3.19 10^6/uL (4.70-6.10) L 10/15/24 04:20
Hgb 9.2 g/dL (13.0-18.0) L 10/15/24 04:20
Hct 28.0 % (39.0-52.0) L 10/15/24 04:20
Plt Count 158 10^3/uL (130-400) 10/15/24 04:20
Sodium 128 mmol/L (135-145) L 10/15/24 04:20
Potassium 4.4 mmol/L (3.5-5.1) 10/15/24 04:20
Chloride 96 mmol/L (98-107) L 10/15/24 04:20
Carbon Dioxide 26 mmol/L (22-30) 10/15/24 04:20
BUN 44 mg/dl (9-20) H 10/15/24 04:20
Creatinine 1.8 mg/dL (0.7-1.3) H 10/15/24 04:20
eGFR 43.36 10/15/24 04:20
Glucose 159 mg/dl (70-99) H 10/15/24 04:20
Calcium 8.7 mg/dl (8.4-10.2) 10/15/24 04:20
Albumin 3.8 g/dl (3.5-5.0) 10/02/24 08:30
Physical Exam
-
Vital Signs:
Vital Signs
Temp Pulse Resp BP Pulse Ox
98.1 F 72 16 98/72 95
10/15/24 08:08 10/15/24 09:45 10/15/24 08:08 10/15/24 09:45 10/15/24 09:57
Cardiovascular:: Regular rate and rhythm
Respiratory:: Bilateral: CTA (decreased)
Lung Excursion:: Normal
Abdomen:: Nontender and Soft
Extremity Edema:: +1: Bilateral:
Catheter: No
--- NOTE | 2024-10-15 10:22 | PTCARENOTE ---
Epicardial pacing wires d/c'd by DARLINE Radha. Bedrest maintained x 1 hour, VS obtained per protocol. Mediastinal chest tubes then d/c'd as ordered. Patient tolerated well.
[2024-10-15 10:32] LABS: Osmolality Urine 286 mOsm/kg (300-900)
[2024-10-15 11:15] LABS: Urine Sodium 44 mmol/L (30-90)
[2024-10-15] MEDS: NSS IV (11:16)
--- NOTE | 2024-10-15 11:40 | W.PN.CARDCBS ---
Addendum entered and electronically signed by Lyndsay Paiz MD 10/15/24 17:08:
I saw and examined the patient.
The Dry End Tester's note was reviewed and I agree with the note.
Comment: Patient is doing well.
Vital signs and lab work reviewed. Creat 1.8. On exam patient is well-appearing, no acute distress, appears fatigued, in bed resting, regular rate, normal S1 and S2, no murmurs, rubs or gallops, sternotomy wound is well-healing, lungs are clear to
auscultation bilaterally except decreased breath sounds at bases, abdomen is soft, nontender, nondistended with active bowel sounds, warm extremities.
Recommendations
1. Patient is status post aortic root and ascending aortic replacement with left atrial appendage clip on October 13, 2024.
2. Continue to monitor blood counts and renal function closely with baseline CKD. Appreciate nephrology input.
3. Living related donor renal transplant history for IgA nephropathy in 2015 with chronically immunosuppressed state.
4. Continue with supportive care, encourage out of bed to chair once rested. Strongly encourage incentive spirometry
Lyndsay Paiz MD, [facility], [facility]
Original Note:
Today's Communication / Plan
-
continue post op care
follow Cr
Impression / Plan
-
Primary Programmer Analyst: Dr. Whitlock
Assessment:
Aortic root and SN aortic aneurysm with interval growth and AI with bicuspid morphology s/p ascending aorta and aortic root replacement, JOHN clip 10/13/24
Chronic type A aortic root dissection
HTN
Chronically immunosuppressed state
Living related donor renal transplantation for IgA nephropathy 2015
CKD with baseline Cr 1.4
Colorectal cancer status post resection and radiation/chemotherapy, in remission
Recurrent skin cancer
Post op hypoglycemia
ECHO 09/21/24: EF 56%, mild concentric LVH, MAC, bicuspid aortic valve with fusion of right and left coronary cusps, moderate to severe AI, severely dilated aortic root measuring 5.1 cm at sinus of Valsalva, 5.0 cm at sinotubular junction, 5.8 cm
ascending aorta
Plan:
-s/p ascending aorta and aortic root replacement, JOHN clip 10/13/24
-Weaned off supplemental O2. CTs out
-In sinus rhythm on review of telemetry. Continue Amio
-Diuresis per nephrology given hyponatremia and creatinine of 1.8 today. He has history of renal transplant as above
-prior to admission was on norvasc 5mg daily, coreg 25mg BID, lisinopril 10mg daily. coreg resumed 10/14. resume post op as able
-continue post op care
-OOB/IS encouraged
-d/w nursing. d/w patient and family at bedside
Progress Note - Programmer Analyst
Subjective
Date of Service: October 15, 2024
no complaints.
Objective
Labs:
10/15/24 04:20
10/15/24 04:20
Labs
Hgb 9.2 g/dL (13.0-18.0) L 10/15/24 04:20
Hct 28.0 % (39.0-52.0) L 10/15/24 04:20
Plt Count 158 10^3/uL (130-400) 10/15/24 04:20
PT 17.4 Sec (11.4-14.6) H 10/13/24 11:52
INR 1.40 10/13/24 11:52
APTT 32.0 Sec (23.4-35.0) 10/13/24 11:52
Sodium 128 mmol/L (135-145) L 10/15/24 04:20
Potassium 4.4 mmol/L (3.5-5.1) 10/15/24 04:20
BUN 44 mg/dl (9-20) H 10/15/24 04:20
Creatinine 1.8 mg/dL (0.7-1.3) H 10/15/24 04:20
Glucose 159 mg/dl (70-99) H 10/15/24 04:20
Vital Signs and I&O:
Vital Signs
Temp Pulse Resp BP Pulse Ox
98.1 F 66 16 106/76 91
10/15/24 08:08 10/15/24 11:01 10/15/24 08:08 10/15/24 11:01 10/15/24 10:39
Vital Signs
Temp Pulse Resp BP Pulse Ox
98.1 F 66 16 106/76 91
10/15/24 08:08 10/15/24 11:01 10/15/24 08:08 10/15/24 11:01 10/15/24 10:39
Intake & Output
10/13/24 10/14/24 10/15/24 10/16/24
07:59 07:59 07:59 07:59
Intake Total 1617.4 / 1655.4 1814.1 / 1814.1 290 / 290
Output Total 1605 / 1755 2210 / 2210 470 / 470
Balance 12.4 / -99.6 -395.9 / -395.9 -180 / -180
Physical Exam
Physical Exam
GEN: No distress, awake, alert, oriented x3. sitting in chair
HEENT: supple, anicteric, mmm, eomi
LUNGS: CTA B/L, no wheezes
CV: Reg, S1/S2, no murmur
EXT: No cyanosis, clubbing. trace edema of B/L LE
NEURO: Gross non-focal
SKIN: Warm, pink, dry. No rash. Sternotomy incision c/d/i.
--- NOTE | 2024-10-15 12:08 | PTCARENOTE ---
VS obtained, assessment stable. Patient oob in chair, states pain controlled, ordered lunch. Family at bedside.
--- NOTE | 2024-10-15 12:25 | CM ---
Chart reviewed. Patient OOB sitting in the chair, with family at bedside. Patient is independent of ADLS, lives with his in a 2 STH, 1 JIE, 0 DME. Plan is for the patient to return home with CT Transitional RN. CM to follow
--- NOTE | 2024-10-15 14:30 | PTCARENOTE ---
resumed care of patient from previous RN. oob in chair. AAO x3. SR. HR 60-70s. RA. using urinal. min assist. All procedural sites stable. no drips. will continue to monitor.
[2024-10-15] MEDS: FERRLECIT 110 MG IV (15:30)
[2024-10-15] MEDS: SAMSCA 7.5 MG PO (17:57)
--- NOTE | 2024-10-15 20:00 | PTCARENOTE ---
received pt from previous rn. Pt AAOx4, VSS, NSR per tele monitor HR 70s +click, trace B/L LE edema, pox 94% on 2L NC lungs diminished, IS 2000, +bs, voids appropriately in urinal, sternal incision intact. RIJ cordis infusing KVO, pivx1 intact. plan
of care discussed questions encouraged.
[2024-10-16] VITALS (16 sets, daily range): BP systolic 105–140; BP diastolic 48–94; PULSE 74; O2SAT 98–99; BMI 26.6
--- NOTE | 2024-10-16 00:13 | PTCARENOTE ---
pt resting comfortably in bed, VSS, NSR per tele monitor HR 70s. assessment remains unchanged
[2024-10-16] MEDS: ROXICODONE 5 MG PO ×2 (03:10→21:27)
--- NOTE | 2024-10-16 03:32 | PTCARENOTE ---
routine lab obtained, VSS, NSR per tele monitor HR 60s, assessment remains unchanged.
[2024-10-16 04:04] LABS: Hematocrit 25.3 % (39.0-52.0); Hemoglobin 8.6 g/dL (13.0-18.0); Mean Corpuscular Hgb 29.9 pg (27.0-31.0); Mean Corpuscular Volume 87.8 fL (80.0-94.0); Mean Platelet Volume 11.1 fL (7.4-10.4); Platelet Count 144 10^3/uL (130-400); Red Blood Cell Count 2.88 10^6/uL (4.70-6.10); Red Cell Dist. Width 13.4 % (11.5-14.5)
[2024-10-16 04:30] LABS: Blood Urea Nitrogen 52 mg/dl (9-20); Calcium 8.4 mg/dl (8.4-10.2); Carbon Dioxide 27 mmol/L (22-30); Chloride 96 mmol/L (98-107); Estimated Creatinine Clearance 43 ml/min; Glucose 121 mg/dl (70-99); Magnesium 2.4 mg/dl (1.6-2.3); Potassium 4.2 mmol/L (3.5-5.1); Sodium 128 mmol/L (135-145); eGFR 40.64
[2024-10-16] MEDS: TYLENOL 1000 MG PO ×3 (06:05→22:28)
[2024-10-16] MEDS: NSS 500 IV (06:25)
--- NOTE | 2024-10-16 06:46 | W.PN.CT ---
Today's Communication / Plan
-
-pod #3
-no issues overnight
-diuresed with iv Lasix and Samsca 10/15 (UO 1105/1805 in 12/24 hrs)
-Cr is trending up - 1.9 today (1.4 preop)
-Na 128- follow
-encourage IS, OOB, ambulate
-appreciate everyone's input
Assessment / Plan
-
- Aortic root aneurysm with bicuspid aortic valve with moderately severe insufficiency with interval change - s/p Ascending aorta and aortic root replacement - Biological Bentall [29 mm valved conduit]; Reimplantation of coronary buttons [left and
right]; LAAE [35 mm device] by Dr. Arce on 10/13/24, pod #3
- Intraop KENNY: LVEF preop was 60% with no regional wma. His LV was mildly dilated. Following surgery, his EF remained the same at 55 to 60% with no new regional wall motion abnormalities. His LV did appear less dilated. After coming off
cardiopulmonary bypass, there was no regional wall motion abnormalities and normal RV function. His left atrial appendage was verified to be free of any thrombus or debris preoperatively and clipped postoperatively
- Aortic root and SN aortic aneurysm with interval growth
- Chronic type A aortic root dissection
- Hypertension
- Chronically immunosuppressed
- Status post renal transplantation for IgA nephropathy
- Baseline CKD3a with creatinine of 1.4
- Colorectal cancer status post resection, remission
- Moderately severe aortic valve insufficiency with bicuspid valve morphology [left right fusion]
- History of radiation therapy for colon cancer
- Recurrent skin cancer
- Acute postop blood loss anemia- stable, no transfusion
- Acute postop atelectasis
- Acute postop hypovolemia with subsequent hypervolemia
- Acute postop hyponatremia
- MISAEL on CKD
Discussed patient care with: Nursing and Care Team
Subjective
-
Date of Service: October 16, 2024
Objective Data
-
Lab Results
10/16/24 03:20
10/16/24 03:20
PT 17.4 Sec (11.4-14.6) H 10/13/24 11:52
INR 1.40 10/13/24 11:52
APTT 32.0 Sec (23.4-35.0) 10/13/24 11:52
Vital Signs
Vital Signs
Temp Pulse Resp BP Pulse Ox
98.2 F 69 20 118/78 92
10/16/24 03:26 10/16/24 06:00 10/16/24 03:26 10/16/24 06:00 10/16/24 03:26
CT Intake/Output/Weight
10/15/24 10/15/24 10/16/24
06:59 18:59 06:59
Intake Total 100 / 1851.4 300 / 330 30 / 330
Output Total 745 / 2275 720 / 2425 1705 / 2425
Balance -645 / -423.6 -420 / -2095 -1675 / -2095
SaO2: 92
Physical Exam
-
General: Awake and AOx3
Cardiovascular: Regular rate & rhythm, No Murmurs and No Rub
Respiratory: Decreased Breath Sounds
Sternum: Stable
Incision: Clean, Dry and Intact
Extremities: No Edema
Abdomen:
Data Reviewed
-
Lab Results: Results Reviewed
Medications: Active Meds Reviewed
Chest X-Ray: Report Reviewed and Image Reviewed
ECG: Report Reviewed and Image Reviewed
--- NOTE | 2024-10-16 08:00 | PTCARENOTE ---
received pt from previous rn. walking orunds completed. pt oob in chair at time of assessment-AAOx3, VSS, NSR HR 70s. +click. trace edema. 95% on RA. lungs diminished, IS 1500. BRP. independent in walking at this time,. minimal pain reported. All
surgical sites c/d/i. RIJ cordis. will continue to monitor. patient doing very well.
[2024-10-16] MEDS: MAGNESIUM OXIDE 500 MG PO ×2 (09:25→19:56)
[2024-10-16] MEDS: LOW STRENGTH ASPIRIN 81 MG PO (09:26)
[2024-10-16] MEDS: NEURONTIN 100 MG PO ×3 (09:26→22:28)
[2024-10-16] MEDS: ENVARSUS XR 2 MG PO (09:28)
[2024-10-16] MEDS: SENOKOT-S 1 TABLET PO (09:30)
[2024-10-16] MEDS: VITAMIN C 500 MG PO (09:30)
[2024-10-16] MEDS: FEOSOL 325 MG PO (09:30)
[2024-10-16] MEDS: BENTYL 20 MG PO ×3 (09:30→22:28)
[2024-10-16] MEDS: COREG 25 MG PO ×2 (09:31→19:56)
[2024-10-16] MEDS: BACTROBAN 2% OINTMENT 1 APPLIC NASAL ×2 (09:32→19:57)
[2024-10-16] MEDS: LIDOCAINE 4% PATCH 1 PATCH TOPICAL (09:34)
[2024-10-16] MEDS: CELLCEPT 500 MG PO ×2 (09:36→19:56)
[2024-10-16] MEDS: PROTONIX 40 MG PO (09:39)
[2024-10-16] MEDS: PACERONE 200 MG PO ×3 (09:40→22:28)
--- NOTE | 2024-10-16 10:49 | W.PN.CARDCBS ---
Addendum entered and electronically signed by Lyndsay Paiz MD 10/16/24 19:11:
I saw and examined the patient.
The Breakdown Man's note was reviewed and I agree with the note.
Comment: Patient is doing well.
Vital signs and lab work reviewed. Creatinine stable. On exam patient is well-appearing, no acute distress, appears fatigued, in bed resting, regular rate, normal S1 and S2, no murmurs, rubs or gallops, sternotomy wound is well-healing, lungs are
clear to auscultation bilaterally except decreased breath sounds at bases, abdomen is soft, nontender, nondistended with active bowel sounds, warm extremities.
Recommendations
1. Patient is status post aortic root and ascending aortic replacement with left atrial appendage clip on October 13, 2024.
2. Continue to monitor blood counts and renal function closely with baseline CKD. Appreciate nephrology input otoniel with hyponatremia management.
3. Living related donor renal transplant history for IgA nephropathy in 2015 with chronically immunosuppressed state.
4. Continue with supportive care, encourage out of bed to chair and ambulation. Strongly encourage incentive spirometry.
Lyndsay Paiz MD, [facility], [facility]
Original Note:
Today's Communication / Plan
-
mgmt of RI and hypoNa per nephro
stable from cardiac standpoint
post op care
Impression / Plan
-
Primary Clinical Recruiter: Dr. Whitlock
Assessment:
Aortic root and SN aortic aneurysm with interval growth and AI with bicuspid morphology s/p ascending aorta and aortic root replacement, JOHN clip 10/13/24
Chronic type A aortic root dissection
HTN
Chronically immunosuppressed state
Living related donor renal transplantation for IgA nephropathy 2015
CKD with baseline Cr 1.4
Colorectal cancer status post resection and radiation/chemotherapy, in remission
Recurrent skin cancer
Post op hypoglycemia
ECHO 09/21/24: EF 56%, mild concentric LVH, MAC, bicuspid aortic valve with fusion of right and left coronary cusps, moderate to severe AI, severely dilated aortic root measuring 5.1 cm at sinus of Valsalva, 5.0 cm at sinotubular junction, 5.8 cm
ascending aorta
Plan:
-s/p ascending aorta and aortic root replacement, JOHN clip 10/13/24
-looks well
-sodium stable at 128, Cr up slightly to 1.9. nephro managing due to history of renal transplant
-in SR on review of tele
-prior to admission was on norvasc 5mg daily, coreg 25mg BID, lisinopril 10mg daily. coreg resumed 10/14. BPs stable. hold off on lisinopril given acute on chronic CKD. resume norvasc as needed for BP control
-continue post op care
-OOB/IS encouraged
-OP cardiac follow up arranged
-d/w nursing, CT surg HAND TIRE TRIMMER
Progress Note - Clinical Recruiter
Subjective
Date of Service: October 16, 2024
no complaints. eager for DC
Objective
Labs:
10/16/24 03:20
10/16/24 03:20
Labs
Hgb 8.6 g/dL (13.0-18.0) L 10/16/24 03:20
Hct 25.3 % (39.0-52.0) L 10/16/24 03:20
Plt Count 144 10^3/uL (130-400) 10/16/24 03:20
PT 17.4 Sec (11.4-14.6) H 10/13/24 11:52
INR 1.40 10/13/24 11:52
APTT 32.0 Sec (23.4-35.0) 10/13/24 11:52
Sodium 128 mmol/L (135-145) L 10/16/24 03:20
Potassium 4.2 mmol/L (3.5-5.1) 10/16/24 03:20
BUN 52 mg/dl (9-20) H 10/16/24 03:20
Creatinine 1.9 mg/dL (0.7-1.3) H 10/16/24 03:20
Glucose 121 mg/dl (70-99) H 10/16/24 03:20
Vital Signs and I&O:
Vital Signs
Temp Pulse Resp BP Pulse Ox
98.2 F 76 20 124/66 95
10/16/24 03:26 10/16/24 09:31 10/16/24 03:26 10/16/24 09:31 10/16/24 07:30
Vital Signs
Temp Pulse Resp BP Pulse Ox
98.2 F 76 20 124/66 95
10/16/24 03:26 10/16/24 09:31 10/16/24 03:26 10/16/24 09:31 10/16/24 07:30
Intake & Output
10/14/24 10/15/24 10/16/24 10/17/24
07:59 07:59 07:59 07:59
Intake Total 1617.4 / 1655.4 1814.1 / 1814.1 330 / 330
Output Total 1605 / 1755 2210 / 2210 2425 / 2425
Balance 12.4 / -99.6 -395.9 / -395.9 -2095 / -2095
Physical Exam
Physical Exam
GEN: No distress, awake, alert, oriented x3. sitting in chair
HEENT: supple, anicteric, mmm, eomi
LUNGS: CTA B/L, no wheezes
CV: Reg, S1/S2, no murmur
EXT: No cyanosis, clubbing. trace edema of B/L LE
NEURO: Gross non-focal
SKIN: Warm, pink, dry. No rash. Sternotomy incision c/d/i.
--- NOTE | 2024-10-16 10:59 | W.PN.NEPH.PH ---
Today's Communication / Plan
-
laisx
Assessment/Plan
-
Assessment
Living related renal transplant, baseline 1.5
Aortic root, ascending aorta replacement
Hypertension
Colorectal cancer in remission
Bicuspid aortic valve with severe aortic insufficiency
Plan
follow BMP
lasix today
no samsca
continue FK/MMF
can use po lasix tomorrow
-
-
Date of Service: October 16, 2024
CC / HPI / ROS
-
Chief Complaint:
CKD, h/o KTP
History of Present Illness:
Cr up to 1.9
Na 128 stable
non oliguric off now
BP stable
hb decreasing 8.6
Review of Systems:
no sob at rest
feels well today
pain controlled
Labs
-
Labs:
WBC 13.0 10^3/uL (4.8-10.8) H 10/16/24 03:20
RBC 2.88 10^6/uL (4.70-6.10) L 10/16/24 03:20
Hgb 8.6 g/dL (13.0-18.0) L 10/16/24 03:20
Hct 25.3 % (39.0-52.0) L 10/16/24 03:20
Plt Count 144 10^3/uL (130-400) 10/16/24 03:20
Sodium 128 mmol/L (135-145) L 10/16/24 03:20
Potassium 4.2 mmol/L (3.5-5.1) 10/16/24 03:20
Chloride 96 mmol/L (98-107) L 10/16/24 03:20
Carbon Dioxide 27 mmol/L (22-30) 10/16/24 03:20
BUN 52 mg/dl (9-20) H 10/16/24 03:20
Creatinine 1.9 mg/dL (0.7-1.3) H 10/16/24 03:20
eGFR 40.64 10/16/24 03:20
Glucose 121 mg/dl (70-99) H 10/16/24 03:20
Calcium 8.4 mg/dl (8.4-10.2) 10/16/24 03:20
Albumin 3.8 g/dl (3.5-5.0) 10/02/24 08:30
Physical Exam
-
Vital Signs:
Vital Signs
Temp Pulse Resp BP Pulse Ox
98.2 F 76 20 124/66 95
10/16/24 03:26 10/16/24 09:31 10/16/24 03:26 10/16/24 09:31 10/16/24 07:30
Cardiovascular:: Regular rate and rhythm
Respiratory:: Bilateral: Coarse
Lung Excursion:: Normal
Abdomen:: Nontender and Soft
Bowel Sounds:: Normal
Extremity Edema:: +2: Bilateral:
--- NOTE | 2024-10-16 11:39 | CM ---
Chart reviewed. Patient OOB sitting in the chair. Patient is independent of ADLS, lives with his in a 2 STH, 1 JIE, 0 DME. Plan is for the patient to return home with CT Transitional RN. CM to follow
[2024-10-16] MEDS: FERRLECIT 110 MG IV (15:05)
[2024-10-16] MEDS: LASIX 20 MG IV (17:10)
--- NOTE | 2024-10-16 17:10 | PTCARENOTE ---
transferred down with to room 2247 with all belongings. report given to jenni OVIEDO.
--- NOTE | 2024-10-16 18:18 | PTCARENOTE ---
Pt received from [facility] - Pt walked from unit to new room without issue. Pt AAO x 3; 95% on RA, HR 70-80's; SR on tele monitor; Provided urinal; Denies pain at this time; Oriented to new room, call roman within reach. Will continue to monitor and
assess.
[2024-10-16] MEDS: SENOKOT-S PO (19:55)
--- NOTE | 2024-10-16 23:28 | PTCARENOTE ---
assumed care of the patient at the change of shift. AAOx3. intermittent sternal, incisional pain. PRN oxy given with relief, see mar. SR on tele 70s. bp stable. trace LE edema/+pulses. dyspnea on exertion noted- patient states much improved. 96% on
RA. IS encouraged. ambulating in the hallway and room independently. steady on his feet. sternal precautions maintained. surgical incisions intact. reviewed plan of care with patient and verbalized understanding. urinating yellow urine in the
urinal. call roman within reach. makes needs known.
[2024-10-17] VITALS (7 sets, daily range): BP systolic 115–153; BP diastolic 71–82; PULSE 73; BMI 26.5
[2024-10-17] MEDS: ROXICODONE 5 MG PO (04:55)
[2024-10-17 04:57] LABS: Hematocrit 25.4 % (39.0-52.0); Hemoglobin 8.7 g/dL (13.0-18.0); Mean Corp Hgb Conc. 34.3 g/dL (33.0-37.0); Mean Corpuscular Hgb 29.1 pg (27.0-31.0); Mean Corpuscular Volume 84.9 fL (80.0-94.0); Mean Platelet Volume 10.6 fL (7.4-10.4); Platelet Count 172 10^3/uL (130-400); Red Blood Cell Count 2.99 10^6/uL (4.70-6.10); Red Cell Dist. Width 13.3 % (11.5-14.5); White Blood Cell Count 10.8 10^3/uL (4.8-10.8)
[2024-10-17] MEDS: TYLENOL PO (05:20)
[2024-10-17 05:21] LABS: Blood Urea Nitrogen 56 mg/dl (9-20); Calcium 8.5 mg/dl (8.4-10.2); Carbon Dioxide 26 mmol/L (22-30); Chloride 99 mmol/L (98-107); Estimated Creatinine Clearance 43 ml/min; Glucose 117 mg/dl (70-99); Magnesium 2.6 mg/dl (1.6-2.3); Potassium 4.2 mmol/L (3.5-5.1); Sodium 133 mmol/L (135-145); eGFR 40.64
--- NOTE | 2024-10-17 06:02 | W.PN.CT ---
Today's Communication / Plan
-
-No major issues overnight. Hemodynamically intact
-Has been hyponatremic postop, 128 yesterday, up to 133 today following Samsca. Nephrology following
-Cont. current meds
-F/U 2-view cxr
-OOB into chair/Ambulate
-Home today
Assessment / Plan
-
- Aortic root aneurysm with bicuspid aortic valve with moderately severe insufficiency with interval change - s/p Ascending aorta and aortic root replacement - Biological Bentall [29 mm valved conduit]; Reimplantation of coronary buttons [left and
right]; LAAE [35 mm device] by Dr. Arce on 10/13/24, pod #4
- Intraop KENNY: LVEF preop was 60% with no regional wma. His LV was mildly dilated. Following surgery, his EF remained the same at 55 to 60% with no new regional wall motion abnormalities. His LV did appear less dilated. After coming off
cardiopulmonary bypass, there was no regional wall motion abnormalities and normal RV function. His left atrial appendage was verified to be free of any thrombus or debris preoperatively and clipped postoperatively
- Aortic root and SN aortic aneurysm with interval growth
- Chronic type A aortic root dissection
- Hypertension
- Chronically immunosuppressed
- Status post renal transplantation for IgA nephropathy
- Baseline CKD3a with creatinine of 1.4
- Colorectal cancer status post resection, remission
- Moderately severe aortic valve insufficiency with bicuspid valve morphology [left right fusion]
- History of radiation therapy for colon cancer
- Recurrent skin cancer
- Acute postop blood loss anemia- stable, no transfusion
- Acute postop atelectasis
- Acute postop hypovolemia with subsequent hypervolemia
- Acute postop hyponatremia
- MISAEL on CKD
Discussed patient care with: Cardiology, Nursing, Respiratory Therapy and Care Team
Subjective
-
Date of Service: October 17, 2024
C/o mild incisional pain, otherwise feels well
Objective Data
-
Lab Results
10/17/24 04:45
10/17/24 04:45
PT 17.4 Sec (11.4-14.6) H 10/13/24 11:52
INR 1.40 10/13/24 11:52
APTT 32.0 Sec (23.4-35.0) 10/13/24 11:52
Vital Signs
Vital Signs
Temp Pulse Resp BP Pulse Ox
98.0 F 72 20 138/76 92
10/17/24 04:30 10/17/24 05:00 10/17/24 04:30 10/17/24 04:38 10/17/24 04:30
CT Intake/Output/Weight
10/16/24 10/16/24 10/17/24
06:59 18:59 06:59
Intake Total 30 / 330 270 / 520 250 / 520
Output Total 1705 / 2425 1000 / 3400 2400 / 3400
Balance -1675 / -2095 -730 / -2880 -2150 / -2880
SaO2: 92 (RA)
Physical Exam
-
General: Awake, Oriented and AOx3
Cardiovascular: Regular rate & rhythm, No Murmurs, No Rub and No Gallop
Respiratory: Decreased Breath Sounds (at bases, otherwise clear)
Sternum: Stable
Incision: Clean, Dry, Intact and Dressing Intact
Extremities: No Edema
Data Reviewed
-
Lab Results: Results Reviewed
Medications: Active Meds Reviewed
Chest X-Ray: Report Reviewed and Image Reviewed
ECG: Report Reviewed and Image Reviewed
[2024-10-17] MEDS: BACTROBAN 2% OINTMENT 1 APPLIC NASAL (08:15)
[2024-10-17] MEDS: PROTONIX 40 MG PO (08:15)
[2024-10-17] MEDS: CELLCEPT 500 MG PO (08:15)
[2024-10-17] MEDS: FEOSOL 325 MG PO (08:15)
[2024-10-17] MEDS: ZESTRIL 2.5 MG PO (08:15)
[2024-10-17] MEDS: MAGNESIUM OXIDE 500 MG PO (08:15)
[2024-10-17] MEDS: LOW STRENGTH ASPIRIN 81 MG PO (08:16)
[2024-10-17] MEDS: LASIX 40 MG PO (08:16)
[2024-10-17] MEDS: COREG 25 MG PO (08:16)
[2024-10-17] MEDS: ENVARSUS XR 2 MG PO (08:16)
[2024-10-17] MEDS: NEURONTIN 100 MG PO (08:16)
[2024-10-17] MEDS: BENTYL 20 MG PO (08:16)
[2024-10-17] MEDS: SENOKOT-S PO (08:17)
[2024-10-17] MEDS: LIDOCAINE 4% PATCH TOPICAL (08:17)
[2024-10-17] MEDS: PACERONE 200 MG PO (08:17)
[2024-10-17] MEDS: VITAMIN C 500 MG PO (08:17)
--- NOTE | 2024-10-17 10:05 | W.DCSUMMARY ---
Discharge Summary
Discharge Data
Date of Admission: 10/13/24
Date of Discharge: 10/17/24
Total time spent discharging patient (in min): 45
-
Pending Results: No
Hospital Course
Primary care physician:
Dr. Evlis Finch
Outpatient voice intercept technician:
Dr. Boyd
Inpatient consultants:
Nephrology, Home Care Music Therapist, DCA,
Procedures:
1. Ascending aorta and aortic root replacement - Biological Bentall [29 mm valved conduit]
Primary Diagnosis:
1. Aortic root aneurysm with bicuspid aortic valve with moderately severe insufficiency with interval change
Secondary Diagnoses:
1. Aortic root and SN aortic aneurysm with interval growth
2. Chronic type A aortic root dissection
3. Hypertension
4. Chronically immunosuppressed
5. Status post renal transplantation for IgA nephropathy
6. Baseline CKD with creatinine of 1.4
7. Colorectal cancer status post resection, remission
8. Moderately severe aortic valve insufficiency with bicuspid valve morphology [left right fusion]
9. History of radiation therapy for colon cancer
10. Recurrent skin cancer
11. Hyponatermia
12. post-op hypervolemia
HPI: 59-year-old male with a history of living related kidney transplantation in 2016 for IgA nephropathy now is on chronic immunosuppressive medications with a baseline CKD with creatinine of 1.4. He has a known ascending aortic root aneurysm
that has degenerated and increased in size. He also has moderately severe aortic valve insufficiency with known bicuspid valve morphology. Given the interval increase in size and bicuspid morphology, he was offered high risk surgical resection. He
presented electively on 10/[address] Arce.
Hospital course: Patient presented electively on 10/[address] Arce. Postoperatively he returned to the CVICU on Cardene, Precedex, insulin and on and off Levophed infusions. Eventually patient was maintained on Cardene to keep a
systolic blood pressure of 90-110. Insulin drip was turned off after a low blood sugar and D50 was given. Precedex was weaned off and patient was extubated by 1605. On 10/14 postoperative day 1 patient was found to be in a metabolic acidosis with
a bicarb of 17. He was given a total of 3 A of sodium bicarb and ABG corrected. Later that day he was given 40 mg of IV Lasix and systolic blood pressure was liberalized to 130. Patient's Coreg was resumed and Cardene was weaned off. Nephrology
was consulted and he was started on as needed IV Lasix. his creatinine was trended and it went from 1.5-1.6. On 10/15 postoperative day 2 patient was diuresed with 20 mg of IV Lasix. Wires and chest tubes were discontinued. He was hyponatremic
with a sodium of 125 and was given 1 dose of Samsca per nephrology. On 10/16 postoperative day 3 patient was again diuresed with Lasix, no Samsca per nephrology and Cordis catheter was removed. On 10/17 postoperative day 4, patient was given p.o.
Lasix and sodium was improving. 2 view chest x-ray showed small to moderate pleural effusions, patient will receive a repeat chest x-ray in 1 week. He was deemed stable for discharge with p.o. Lasix and repeat BMP in 1 week. Per nephrology he
will remain on CellCept for a month for healing and after 1 month he will be reevaluated for tacrolimus.
Home medication changes:
see below
Discharge Plan
-
Patient Disposition: Home (Routine Discharge)
Discharge Diagnosis/Procedures: Ascending aorta and aortic root replacement - Biological Bentall [29 mm valved conduit]
Condition: Good
Diet: Low Cholesterol and 2 Gram Sodium
Activity: No strenuous activity
Driving Restrictions: Not until seen by your Dr
Bathing Restrictions: OK to Shower
Blood Work: CXR, mg, BMP in 1 week
Other Services: Cardiac Rehab
Specialty Instructions: Weigh Daily- Call MD for wt gain/loss 3 lbs overnight/5 lbs in 1 week
Activity Restrictions/Additional Instructions:
ACTIVITY:
-No strenuous activity: no heavy lifting, pushing, pulling anything over 15 pounds for one month
-continue to use stairs as tolerated
DRIVING RESTRICTIONS:
-No driving for one month or until approved by your surgeon
WOUND CARE:
-Shower daily. Use soap & water.
-No lotions, creams or powders on incision area.
DIET:
-continue a low fat/low cholesterol diet.
-IF you are diabetic, continue carb controlled diet.
CARDIAC REHAB:
-Please make appointment to start in 5-6 weeks with your local hospital program. (See Cardiac Rehabilitation Discharge Booklet).
SPECIALTY INSTRUCTIONS:
-Weigh yourself daily. Call your physician for any weight gain/loss of 3 lbs overnight or 5 lbs in one week.
-REPORT any clicking noise or uneven appearance of your sternum to your surgeon immediately.
-If you smoke, you are instructed to quit. The [facility] smoking hotline phone number is [phone]
Referrals:
CT Transitional Care Nurse [Outside] (The Cardiothoracic Transitional Care Nurse will call you to set up a visit in 1-2 days.)
[facility]. Cardiac Rehab [Outside] - 11/18/24 10:00 am
(Cardiac Rehab Orientation appointment is on 11/18/24 at 10:00a
The Cardiac Rehab gym is located on the first floor of the [facility].)
Lindy Juan PA-C [Specified Professional Personl] - 11/25/24 9:00 am
Enriqueta Kay MD [Family Provider] -
Nazario Arce MD [Active] - 11/17/24 1:30 pm
Alex Laureano MD [Active] - in one month
Additional Discharge Medication Instructions: Please continue your cellcept for one month, after one month of healing your graphite grinder may make changes to your anti-rejection medications
please note that your blood pressure medications have changed. Do not increase unless directed by a medical professional
Prescriptions:
New
acetaminophen 325 mg Tablet
650 mg PO Q6HPRN PRN (Reason: mild pain,headache,temp >101F ) Qty: 1 0RF
aspirin 81 mg Tablet,Chewable
81 mg PO DAILY Qty: 0 0RF
gabapentin 100 mg Capsule
100 mg PO TID Qty: 30 0RF
oxycodone 5 mg Tablet
2.5 mg PO Q4HPRN PRN (Reason: severe pain) Qty: 10 0RF
furosemide 20 mg tablet
20 mg PO DAILY Qty: 7 0RF
Continued
Envarsus XR 1 mg Tablet Extended Release 24 Hr
2 mg PO DAILY
Rx Instructions:
must be taken on empty stomach
carvedilol 25 mg Tablet
25 mg PO BID
dicyclomine 20 mg Tablet
20 mg PO TID
cyanocobalamin (vitamin B-12) [Vitamin B-12] 1,000 mcg Tablet
1,000 mcg PO DAILY
mycophenolate mofetil 500 mg Tablet
500 mg PO BID
Changed
loperamide 2 MG capsule
6 mg PO DAILY PRN (Reason: Gastrointestinal Issue) Qty: 0 0RF
lisinopril 10 mg Tablet
5 mg PO DAILY Qty: 0 0RF
Held
amlodipine 5 mg Tablet
5 mg PO DAILY
Hold Instructions: Do not resume until directed by a medical professional
sirolimus 1 mg Tablet
1.5 mg PO DAILY
Hold Instructions: please hold until you speak with a graphite grinder
Discharge Orders:
Discharge Patient (As Directed); Ordered 10/17/24
Ordered By: Samaria Garcia
Care Plan Goals
Care Plan Goals:
Problem: Readiness for enhanced knowledge related to diagnosis and treatment plan
Goal: Understand your diagnosis and treatment plan needs, including medications if applicable.
Instructions: Know your diagnosis, underlying causes and treatment plan options, including medications if applicable. Consult with your health care team to learn about your diagnosis and treatment plan, including medications if applicable.
Discharge Date and Time
Print Language: GIBRALTARIAN
[2024-10-17] MEDS: NSS IV (10:46)
--- NOTE | 2024-10-17 10:54 | W.PN.NEPH.PH ---
Today's Communication / Plan
-
lasix
Assessment/Plan
-
Assessment
Living related renal transplant, baseline 1.5
Aortic root, ascending aorta replacement
Hypertension
Colorectal cancer in remission
Bicuspid aortic valve with severe aortic insufficiency
Plan
follow BMP
lasix 20mg daily
continue FK/MMF until incision is healed
BMP in 1 week
for dc
-
-
Date of Service: October 17, 2024
CC / HPI / ROS
-
Chief Complaint:
CKD, h/o KTP
History of Present Illness:
Cr stale 1.9
Na 133 stable
non oliguric off now PVR good
BP stable
hb stable 8.7
Review of Systems:
no sob at rest
feels well today
pain controlled
Labs
-
Labs:
WBC 10.8 10^3/uL (4.8-10.8) 10/17/24 04:45
RBC 2.99 10^6/uL (4.70-6.10) L 10/17/24 04:45
Hgb 8.7 g/dL (13.0-18.0) L 10/17/24 04:45
Hct 25.4 % (39.0-52.0) L 10/17/24 04:45
Plt Count 172 10^3/uL (130-400) 10/17/24 04:45
Sodium 133 mmol/L (135-145) L 10/17/24 04:45
Potassium 4.2 mmol/L (3.5-5.1) 10/17/24 04:45
Chloride 99 mmol/L (98-107) 10/17/24 04:45
Carbon Dioxide 26 mmol/L (22-30) 10/17/24 04:45
BUN 56 mg/dl (9-20) H 10/17/24 04:45
Creatinine 1.9 mg/dL (0.7-1.3) H 10/17/24 04:45
eGFR 40.64 10/17/24 04:45
Glucose 117 mg/dl (70-99) H 10/17/24 04:45
Calcium 8.5 mg/dl (8.4-10.2) 10/17/24 04:45
Albumin 3.8 g/dl (3.5-5.0) 10/02/24 08:30
Physical Exam
-
Vital Signs:
Vital Signs
Temp Pulse Resp BP Pulse Ox
98.3 F 78 18 146/76 96
10/17/24 07:33 10/17/24 08:30 10/17/24 07:33 10/17/24 08:17 10/17/24 08:44
Cardiovascular:: Regular rate and rhythm
Respiratory:: Bilateral: Coarse
Lung Excursion:: Normal
Abdomen:: Nontender and Soft
Bowel Sounds:: Normal
Extremity Edema:: +1: Bilateral:
--- NOTE | 2024-10-17 11:15 | PTCARENOTE ---
received patient this am, monitor show NSR, VSS. sternum NEUROLOGY EPILEPSY PHYSICIAN, chest tube sites dressed with 4x4. right IJ dsg. D/I. I/S 1500, lung clark diminished. patient has +1 edema bilaterally.
--- NOTE | 2024-10-17 11:21 | W.PN.CARDCBS ---
Today's Communication / Plan
-
Stable for discharge from a cardiac point of view
Nephrology following creatinine and blood pressure stable.
Sodium stable.
Monitor stable.
Impression / Plan
-
Primary Journeyman Welder: Dr. Whitlock
Assessment:
Aortic root and SN aortic aneurysm with interval growth and AI with bicuspid morphology s/p ascending aorta and aortic root replacement, JOHN clip 10/13/24
Chronic type A aortic root dissection
HTN
Chronically immunosuppressed state
Living related donor renal transplantation for IgA nephropathy 2015
CKD with baseline Cr 1.4
Colorectal cancer status post resection and radiation/chemotherapy, in remission
Recurrent skin cancer
Post op hypoglycemia
ECHO 09/21/24: EF 56%, mild concentric LVH, MAC, bicuspid aortic valve with fusion of right and left coronary cusps, moderate to severe AI, severely dilated aortic root measuring 5.1 cm at sinus of Valsalva, 5.0 cm at sinotubular junction, 5.8 cm
ascending aorta
Plan:
No complaints overnight. No chest pain. Telemetry stable.
-s/p ascending aorta and aortic root replacement, JOHN clip 10/13/24
-Sodium improved. Creatinine in the setting of renal transplant stable and followed by nephrology.
-Blood pressure management per nephrology
-continue post op care
-Some edema noted agree with Lasix.
Plan for discharge.
Progress Note - Journeyman Welder
Subjective
Date of Service: October 17, 2024
Feels well overall just some muscular soreness.
Objective
Labs:
10/17/24 04:45
10/17/24 04:45
Labs
Hgb 8.7 g/dL (13.0-18.0) L 10/17/24 04:45
Hct 25.4 % (39.0-52.0) L 10/17/24 04:45
Plt Count 172 10^3/uL (130-400) 10/17/24 04:45
PT 17.4 Sec (11.4-14.6) H 10/13/24 11:52
INR 1.40 10/13/24 11:52
APTT 32.0 Sec (23.4-35.0) 10/13/24 11:52
Sodium 133 mmol/L (135-145) L 10/17/24 04:45
Potassium 4.2 mmol/L (3.5-5.1) 10/17/24 04:45
BUN 56 mg/dl (9-20) H 10/17/24 04:45
Creatinine 1.9 mg/dL (0.7-1.3) H 10/17/24 04:45
Glucose 117 mg/dl (70-99) H 10/17/24 04:45
Vital Signs and I&O:
Vital Signs
Temp Pulse Resp BP Pulse Ox
98.3 F 78 18 146/76 96
10/17/24 07:33 10/17/24 08:30 10/17/24 07:33 10/17/24 08:17 10/17/24 08:44
Vital Signs
Temp Pulse Resp BP Pulse Ox
98.3 F 78 18 146/76 96
10/17/24 07:33 10/17/24 08:30 10/17/24 07:33 10/17/24 08:17 10/17/24 08:44
Intake & Output
10/15/24 10/16/24 10/17/24 10/18/24
06:59 06:59 06:59 06:59
Intake Total 1851.4 / 1851.4 330 / 330 720 / 720 240 / 240
Output Total 2275 / 2275 2425 / 2425 3900 / 3900
Balance -423.6 / -423.6 -2095 / -2095 -3180 / -3180 240 / 240
Physical Exam
Physical Exam
General: Well developed, well nourished in NAD.
Heart: Non displaced PMI, RRR, no murmurs, No S3, S4, no rubs.
Lungs: Clear to auscultation bilaterally, no wheeze, rhonchi, rubs bilaterally,
normal expiratory phase.
Extremities: No clubbing, cyanosis and trace to +1 edema bilaterally.
Neuro: Grossly nonfocal, awake, alert and oriented x3.
[2024-10-17] MEDS: TYLENOL 1000 MG PO (13:50)
--- NOTE | 2024-10-17 14:39 | PTCARENOTE ---
D/C instructions given to patient and , both verbalizes understanding. INT D/C'd, telemetry D/C'd, personal belongings packed and sent home with patient. D/C to home via wc accompanied by staff.
== END 2024-10-17 14:40 | disposition home or self-care (01) | DRG 219 ==
LOC: IVU 05:12
PROVIDERS: Internal Medicine; Nurse Practitioner; Physician Assistant Medical; ADMITTING PHYSICIAN Thoracic Surgery (Cardiothoracic Vascular Surgery); CONSULT PHYSICIAN Internal Medicine Critical Care Medicine; CONSULT PHYSICIAN Specialist; FAMILY PHYSICIAN Family Medicine
PROC: 02L70CK Occlusion of Left Atrial Appendage with Extraluminal Device, Open Approach (ICD-10-PCS; 2024-10-13)
PROC: 02RF08N Replacement of Aortic Valve with Zooplastic Tissue, using Rapid Deployment Technique, Open Approach (ICD-10-PCS; 2024-10-13)
PROC: 02R Heart and Great Vessels, Replacement (ICD-10-PCS; 2024-10-13)
PROC: 5A1223Z Performance of Cardiac Pacing, Continuous (ICD-10-PCS; 2024-10-13)
PROC: 5A1221Z Performance of Cardiac Output, Continuous (ICD-10-PCS; 2024-10-13)
DX: I35.1 Nonrheumatic aortic (valve) insufficiency (principal); I71.011 Dissection of aortic arch; Q25.43 Congenital aneurysm of aorta; E87.1 Hypo-osmolality and hyponatremia; D84.821 Immunodeficiency due to drugs; N17.9 Acute kidney failure, unspecified; Z94.0 Kidney transplant status; D62 Acute posthemorrhagic anemia; N18.31 Chronic kidney disease, stage 3a; E16.2 Hypoglycemia, unspecified; I12.9 Hypertensive chronic kidney disease with stage 1 through stage 4 chronic kidney disease, or unspecified chronic kidney disease; Q23.81 Bicuspid aortic valve; Z92.3 Personal history of irradiation; Z92.21 Personal history of antineoplastic chemotherapy; Z80.0 Family history of malignant neoplasm of digestive organs; Z87.891 Personal history of nicotine dependence
CPT/HCPCS: 88305; 88311; 36415; 71045; 71046; 80048; 80053; 81003; 81015; 82248; 82330; 82565; 82570; 82805; 82947; 82962; 83036; 83605; 83735; 83935; 84132; 84300; 84302; 84520; 85014; 85018; 85025; 85027; 85049; 85610; 85730; 86850; 86900; 86901; 86920; 87070; 88313; 88342; 93005; 93312; 93320; 93325; 93880; 94002; J2916

== ENCOUNTER → 2024-10-22 10:03 | Outpatient (REF) | payer BC, SELFPAY | LOC: RAD 10:03 | PROVIDERS: ATTENDING PHYSICIAN Thoracic Surgery (Cardiothoracic Vascular Surgery); FAMILY PHYSICIAN Student in an Organized Health Care Education/Training Program | DX: J90 Pleural effusion, not elsewhere classified (principal) | CPT/HCPCS: 71046 ==

== ENCOUNTER 2024-12-02 09:00 | Outpatient (RCR) | payer BC, SELFPAY | END 2024-12-02 23:59 | disposition home or self-care (01) | LOC: CRHB 09:00 | PROVIDERS: ATTENDING PHYSICIAN Internal Medicine Cardiovascular Disease; FAMILY PHYSICIAN Nurse Practitioner Family | DX: Z95.4 Presence of other heart-valve replacement (principal) | CPT/HCPCS: 93797; 93798 ==

== ENCOUNTER 2024-12-02 09:28 | Outpatient (RCR) | payer BC, SELFPAY ==
[2024-11-03 09:20] VITALS: BP 145/76
[2024-11-03] MEDS: VENOFER 110 MG IV (09:32)
[2024-11-03 10:50] VITALS: BP 111/60
[2024-11-11] MEDS: VENOFER 110 MG IV (09:14)
[2024-11-11 09:23] VITALS: BP 143/79
[2024-11-11 10:30] VITALS: BP 125/77
[2024-11-16 08:35] VITALS: BP 130/74
[2024-11-16] MEDS: VENOFER 110 MG IV (08:50)
[2024-11-16 09:55] VITALS: BP 126/78
[2024-11-25] MEDS: VENOFER 110 MG IV (10:14)
[2024-11-25 10:33] VITALS: BP 140/91
[2024-11-25 11:45] VITALS: BP 141/86
[2024-12-02 09:09] VITALS: BP 127/79
[2024-12-02] MEDS: VENOFER 110 MG IV (09:22)
[2024-12-02 10:20] VITALS: BP 129/81
== END 2024-12-02 23:59 | disposition home or self-care (01) ==
LOC: OID 09:28
PROVIDERS: ATTENDING PHYSICIAN Specialist; FAMILY PHYSICIAN Nurse Practitioner Family
DX: Z94.0 Kidney transplant status (principal); D50.9 Iron deficiency anemia, unspecified; E87.21 Acute metabolic acidosis; D63.8 Anemia in other chronic diseases classified elsewhere
CPT/HCPCS: 96365; J1756

== ENCOUNTER 2024-12-18 11:31 | Outpatient (RCR) | payer BC, SELFPAY | END 2024-12-29 11:08 | disposition home or self-care (01) | LOC: CRHB 11:31 | PROVIDERS: ATTENDING PHYSICIAN Internal Medicine Cardiovascular Disease; FAMILY PHYSICIAN Nurse Practitioner Family | DX: Z95.4 Presence of other heart-valve replacement (principal) | CPT/HCPCS: 93797; 93798 ==

== ENCOUNTER 2025-03-01 06:22 | Day surgery (SDC) | payer BC, SELFPAY | END 2025-03-01 14:49 | disposition home or self-care (01) | LOC: GI 06:22 | PROVIDERS: ATTENDING PHYSICIAN Internal Medicine | DX: Z12.11 Encounter for screening for malignant neoplasm of colon (principal); K57.30 Diverticulosis of large intestine without perforation or abscess without bleeding; Z85.048 Personal history of other malignant neoplasm of rectum, rectosigmoid junction, and anus; Z98.890 Other specified postprocedural states | CPT/HCPCS: G0105 ==

== ENCOUNTER → 2025-04-14 10:08 | Outpatient (REF) | payer BC, SELFPAY | LOC: RCS 10:08 | PROVIDERS: ATTENDING PHYSICIAN Internal Medicine Cardiovascular Disease; FAMILY PHYSICIAN Nurse Practitioner Family | DX: Z95.2 Presence of prosthetic heart valve (principal) | CPT/HCPCS: 93306 ==

== ENCOUNTER 2025-05-03 08:11 | Outpatient (RCR) | payer BC, SELFPAY ==
[2025-05-03] MEDS: SODIUM BICARBONATE 1150 MEQ IV (08:54)
[2025-05-03 09:00] VITALS: BP 134/75
[2025-05-03 14:50] VITALS: BP 146/84
== END 2025-05-04 23:59 | disposition home or self-care (01) ==
LOC: OID 08:11
PROVIDERS: ATTENDING PHYSICIAN Thoracic Surgery (Cardiothoracic Vascular Surgery); FAMILY PHYSICIAN Nurse Practitioner Family
DX: Z94.0 Kidney transplant status (principal); D50.9 Iron deficiency anemia, unspecified; Z85.048 Personal history of other malignant neoplasm of rectum, rectosigmoid junction, and anus; E87.21 Acute metabolic acidosis; D63.8 Anemia in other chronic diseases classified elsewhere; Z93.3 Colostomy status
CPT/HCPCS: 96365; 96366

== ENCOUNTER → 2025-05-03 08:46 | Outpatient (REF) | payer BC, SELFPAY | LOC: RAD 08:46 | PROVIDERS: ATTENDING PHYSICIAN Thoracic Surgery (Cardiothoracic Vascular Surgery); FAMILY PHYSICIAN Nurse Practitioner Family | DX: Z95.2 Presence of prosthetic heart valve (principal) | CPT/HCPCS: 71275; Q9967 ==